=== PATIENT | female | born 1940 | race Hispanic/Latino ===

== ENCOUNTER 2017-10-31 12:06 | Inpatient (IN) | payer MEDICARE ==
[2017-10-31 12:15] VITALS: BMI 20.9
[2017-10-31] MEDS ORDERED: Sodium Chloride 0.9% 1,000 ML IV STA (12:48)
[2017-10-31 12:55] LABS: BASO # 0.02 K/mm3 (0.0-2.0); BASO % 0.3 % (0.0-3.0); EOS # 0.1 (0.0-0.7); EOS % 1.4 % (1.5-5.0); GRAN # 4.38 (1.4-6.5); GRAN % 63.2 % (50.0-68.0); HEMOGLOBIN 13.9 g/dL (12.0-16.0); LYMPH # 1.4 (1.2-3.4); LYMPH % 19.8 % (22.0-35.0); MEAN CORPUSCULAR HEMOGLOBIN 31.4 pg (25.0-35.0); MEAN CORPUSCULAR HGB CONC 34.6 g/dl (31.0-37.0); MEAN PLATELET VOLUME 10.9 fl (7.0-11.0); MONO # 1.1 (0.1-0.6); MONO % 15.3 % (1.0-6.0); RBC 4.42 10^6/uL (3.5-6.1); RED CELL DISTRIBUTION WIDTH 12.7 % (11.5-14.5); WHITE BLOOD COUNT 6.9 10^3/ul (4.5-11.0)
[2017-10-31] MEDS ORDERED: Iohexol 240 (50 ml) ONE (12:56)
[2017-10-31 13:09] LABS: ALB/GLOB RATIO 1.6 (1.1-1.8); ALBUMIN 4.1 g/dL (3.0-4.8); CALCIUM 9.6 mg/dL (8.4-10.5)
[2017-10-31] MEDS ORDERED: Potassium Chloride 20 mEq ER Tab PO STA (13:13)
[2017-10-31 13:28] LABS: TROPONIN I 0.03 ng/mL
--- NOTE | 2017-10-31 13:34 | ED PDOC ---
Arrival/HPI - General Chief Complaint: Abdominal Pain Time Seen by Provider: 10/31/17 12:19 Historian: Patient - History of Present Illness Narrative History of Present Illness (Text): 10/31/17 13:34 A 77 year old female presents to the emergency department complaining of dizziness and abdominal pain. Patient reports abdominal pain for the past week and dizziness for couple days. Reports decreased PO intake. Patient states she has a history of constipation, took an extra dose of laxative and notes several episodes of loose, watery stool. Patient denies any chest pain, shortness of breath or any other complaints at this time. Time/Duration: 1 week, < week Symptom Onset: Sudden Symptom Course: Unchanged Activities at Onset: Rest Context: Home Past Medical History - Provider Review Nursing Documentation Reviewed: Yes - Infectious Disease Hx of Infectious Diseases: None - Cardiac Hx Hypertension: Yes - Neurological Hx Parkinson's Disease: Yes - Psychiatric Hx Anxiety: Yes Hx Depression: Yes Hx Substance Use: No - Surgical History Hx Hysterectomy: Yes - Anesthesia Hx Anesthesia: Yes Hx Anesthesia Reactions: No Hx Malignant Hyperthermia: No Family/Social History - Physician Review Nursing Documentation Reviewed: Yes Family/Social History: No Known Family HX Smoking Status: Never Smoked Hx Alcohol Use: No Hx Substance Use: No Allergies/Home Meds Allergies/Adverse Reactions: Allergies azithromycin Adverse Reaction (Verified 10/31/17 16:21) ANAPHYLAXIS nitrofurantoin [From Macrobid] Adverse Reaction (Verified 10/31/17 16:21) ANAPHYLAXIS Home Medications: Home Meds Medication Instructions Recorded Confirmed ALPRAZolam [Xanax] 1 tab PO QID PRN 10/31/17 10/31/17 Albuterol Sulfate [Proair Hfa] 1 puff IH PRN PRN 10/31/17 10/31/17 Fluticasone/Salmeterol 100/50 1 puff IH DAILY 10/31/17 10/31/17 [Advair Diskus 100/50] Losartan/Hydrochlorothiazide 1 tab PO DAILY 10/31/17 10/31/17 [Hyzaar 100-25 Tablet] PARoxetine [Paxil] 1 tab PO DAILY 10/31/17 10/31/17 Primidone [Mysoline] 3 tab PO HS 10/31/17 10/31/17 Simvastatin [Zocor] 1 tab PO HS 10/31/17 10/31/17 Review of Systems - Physician Review All systems were reviewed & negative as marked: Yes - Review of Systems Respiratory: absent: SOB Cardiovascular: absent: Chest Pain Gastrointestinal: Abdominal Pain, Stool Changes (loose, watery stool), Constipation (chronic) Neurological: Dizziness Physical Exam Vital Signs Reviewed: Yes Vital Signs Temp Pulse Resp BP Pulse Ox 10/31/17 18:31 79 16 131/76 100 10/31/17 15:21 74 18 160/82 H 100 10/31/17 12:21 97.9 F 82 18 133/88 97 Temperature: Afebrile Blood Pressure: Normal Pulse: Regular Respiratory Rate: Normal Appearance: Positive for: Well-Appearing, Non-Toxic, Comfortable Pain Distress: None Mental Status: Positive for: Alert and Oriented X 3 - Systems Exam Head: Present: Atraumatic, Normocephalic Pupils: Present: PERRL Extroacular Muscles: Present: EOMI Conjunctiva: Present: Normal Mouth: Present: Moist Mucous Membranes Neck: Present: Normal Range of Motion Respiratory/Chest: Present: Clear to Auscultation, Good Air Exchange. No: Respiratory Distress, Accessory Muscle Use Cardiovascular: Present: Regular Rate and Rhythm, Normal S1, S2. No: Murmurs Abdomen: Present: Tenderness (periumbilical region), Normal Bowel Sounds. No: Distention, Peritoneal Signs Back: Present: Normal Inspection Upper Extremity: Present: Normal Inspection. No: Cyanosis, Edema Lower Extremity: Present: Normal Inspection. No: Edema Neurological: Present: GCS=15, CN II-XII Intact, Speech Normal Skin: Present: Warm, Dry, Normal Color. No: Rashes Psychiatric: Present: Alert, Oriented x 3, Normal Insight, Normal Concentration Medical Decision Making ED Course and Treatment: 10/31/17 13:31 Impression: A 77 year old female with dizziness and abdominal pain. Plan: -- EKG -- CT abd/pelvis -- labs -- Urinalysis -- IV fluids, Zofran -- Reassess and disposition Progress Notes: EKG: Ordered, reviewed, and independently interpreted the EKG. Rate : 79 BPM Rhythm : NSR Interpretation : Normal axis, normal intervals 10/31/17 14:59 CT Abdomen and Pelvis with contrast Creator : Kahlil Collins MD FINDINGS: LOWER THORAX: Unremarkable. LIVER: Unremarkable. No gross lesion or ductal dilatation. GALLBLADDER AND BILE DUCTS: Unremarkable. PANCREAS: Unremarkable. No gross lesion or ductal dilatation. SPLEEN: Unremarkable. ADRENALS: Unremarkable. No mass. KIDNEYS AND URETERS: Unremarkable. No hydronephrosis. No solid mass. VASCULATURE: Unremarkable. No aortic aneurysm. BOWEL: Multiple dilated small bowel loops are seen throughout the abdomen. This extends to the level of the terminal ileum. There is some mural thickening at the terminal ileum. Findings may be due to inflammatory bowel disease or Crohn' s disease. The finding is best seen on image 35 series 601. The colon is normal in caliber. There is some fluid in the colon and enhancement of the wall of the colon. This could represent mild colitis. APPENDIX: Normal appendix. PERITONEUM: Unremarkable. No free fluid. No free air. LYMPH NODES: Unremarkable. No enlarged lymph nodes. BLADDER: Unremarkable. REPRODUCTIVE: Unremarkable. BONES: No acute fracture. IMPRESSION: Small bowel obstruction probably at the level of the terminal ileum. Findings could be due to Crohn's disease or inflammatory bowel disease. There is also mural enhancement and fluid in the colon, possible colitis - Lab Interpretations Lab Results: 10/31/17 12:50 10/31/17 12:50 Lab Results 10/31/17 14:12: Urine Color Yellow, Urine Appearance Sl cloudy, Urine pH 6.5, Ur Specific [place] <= 1.005, Urine Protein 30 H, Urine Glucose (UA) Negative, Urine Ketones 15 H, Urine Blood Small H, Urine Nitrate Negative, Urine Bilirubin Negative, Urine Urobilinogen 0.2, Ur Leukocyte Esterase Negative, Urine RBC 0 - 2, Urine WBC 0 - 2 10/31/17 12:50: Sodium 133, Potassium 3.1 L, Chloride 99, Carbon Dioxide 23, Anion Gap 15, BUN 20, Creatinine 1.1, Est GFR ( Amer) 58, Est GFR (Non- Af Amer) 48, Random Glucose 102, Calcium 9.6, Total Bilirubin 0.5, AST 52 H, ALT 70 H, Alkaline Phosphatase 78, Lactate Dehydrogenase 648, Total Creatine Kinase 93, Troponin I 0.03, Total Protein 6.5, Albumin 4.1, Globulin 2.5, Albumin/Globulin Ratio 1.6, Amylase 61, Lipase 132 10/31/17 12:50: WBC 6.9, RBC 4.42, Hgb 13.9, Hct 40.2, MCV 91.0, MCH 31.4, MCHC 34.6, RDW 12.7, Plt Count 362, MPV 10.9, Gran % 63.2, Lymph % (Auto) 19.8 L, [place] % (Auto) 15.3 H, Eos % (Auto) 1.4 L, Baso % (Auto) 0.3, Gran # 4.38, Lymph # 1.4, Page # 1.1 H, Eos # 0.1, Baso # 0.02 I have reviewed the lab results: Yes - RAD Interpretation Radiology Orders: 10/31/17 12:48 ABD PELVIS PO & IV CONTRAST [CT] Stat - EKG Interpretation Interpreted by ED Physician: Yes Type: 12 lead EKG - Medication Orders Current Medication Orders: Discontinued Medications Sodium Chloride (Sodium Chloride 0.9%) 1,000 mls @ 250 mls/hr IV .Q4H STA Stop: 10/31/17 16:47 Last Admin: 10/31/17 12:53 Dose: 250 mls/hr eMAR Start Stop Document 10/31/17 12:53 SE (Rec: 10/31/17 12:53 SE [id number]) Intravenous Solution Start Date 10/31/17 Start Time 12:53 Ciprofloxacin (Cipro 400mg/200ml Dsw) 400 mg in 200 mls @ 133.3 mls/hr IVPB STAT STA PRN Reason: Protocol Stop: 10/31/17 17:09 Last Admin: 10/31/17 17:19 Dose: 133.3 mls/hr eMAR Start Stop Document 10/31/17 17:19 SE (Rec: 10/31/17 17:19 SE [id number]) Intravenous Solution Start Date 10/31/17 Start Time 17:19 Metronidazole (Flagyl) 500 mg in 100 mls @ 100 mls/hr IVPB STAT STA PRN Reason: Protocol Stop: 10/31/17 16:38 Last Admin: 10/31/17 15:53 Dose: 100 mls/hr eMAR Start Stop Document 10/31/17 15:53 SE (Rec: 10/31/17 15:53 SE [id number]) Intravenous Solution Start Date 10/31/17 Start Time 15:53 Ondansetron HCl (Zofran Inj) 4 mg IVP STAT STA Stop: 10/31/17 12:49 Last Admin: 10/31/17 12:55 Dose: Potassium Chloride (K-Dur 20 Meq Er Tab) 40 meq PO STAT STA Stop: 10/31/17 13:14 Last Admin: 10/31/17 13:41 Dose: 40 meq - Scribe Statement The provider has reviewed the documentation as recorded by the Scarlet Dobson Provider Scribe Attestation: All medical record entries made by the Adamsibrd were at my direction and personally dictated by me. I have reviewed the chart and agree that the record accurately reflects my personal performance of the history, physical exam, medical decision making, and the department course for this patient. I have also personally directed, reviewed, and agree with the discharge instructions and disposition. Disposition/Present on Arrival - Present on Arrival Any Indicators Present on Arrival: No History of DVT/PE: No History of Uncontrolled Diabetes: No Urinary Catheter: No History of Decub. Ulcer: No History Surgical Site Infection Following: None - Disposition Have Diagnosis and Disposition been Completed?: Yes Diagnosis: Small bowel obstruction, Abdominal pain Disposition: HOSPITALIZED Disposition Time: 15:00 Condition: FAIR
[2017-10-31] MEDS ORDERED: Iohexol 350 MG/100 ML VIAL ONE (14:16)
[2017-10-31 14:23] LABS: PH,URINE 6.5 (4.7-8.0); URINE BILIRUBIN NEGATIVE (NEGATIVE); URINE BLOOD SMALL (NEGATIVE); URINE GLUCOSE (UA) NEGATIVE (NEGATIVE); URINE LEUKOCYTE ESTERASE NEGATIVE Leu/uL (NEGATIVE); URINE NITRATE NEGATIVE (NEGATIVE); URINE PROTEIN 30 mg/dL (<30 mg/dL); URINE UROBILINOGEN 0.2 E.U./dL (<1 E.U./dL)
[2017-10-31 14:25] LABS: URINE APPEARANCE SL CLOUDY (CLEAR); URINE COLOR YELLOW (YELLOW)
[2017-10-31 14:35] LABS: URINE RBC 0 - 2 /hpf (0-2); URINE WBC 0 - 2 /hpf (0-6)
--- NOTE | 2017-10-31 14:58 | CT ---
PROCEDURE: CT Abdomen and Pelvis with contrast HISTORY: periumbilical abdominal pain COMPARISON: None. TECHNIQUE: Contrast dose: 100 cc of Omni 350 Radiation dose: Total exam DLP = 249 mGy-cm. This CT exam was performed using one or more of the following dose reduction techniques: Automated exposure control, adjustment of the mA and/or kV according to patient size, and/or use of iterative reconstruction technique. FINDINGS: LOWER THORAX: Unremarkable. LIVER: Unremarkable. No gross lesion or ductal dilatation. GALLBLADDER AND BILE DUCTS: Unremarkable. PANCREAS: Unremarkable. No gross lesion or ductal dilatation. SPLEEN: Unremarkable. ADRENALS: Unremarkable. No mass. KIDNEYS AND URETERS: Unremarkable. No hydronephrosis. No solid mass. VASCULATURE: Unremarkable. No aortic aneurysm. BOWEL: Multiple dilated small bowel loops are seen throughout the abdomen. This extends to the level of the terminal ileum. There is some mural thickening at the terminal ileum. Findings may be due to inflammatory bowel disease or Crohn's disease. The finding is best seen on image 35 series 601. The colon is normal in caliber. There is some fluid in the colon and enhancement of the wall of the colon. This could represent mild colitis. APPENDIX: Normal appendix. PERITONEUM: Unremarkable. No free fluid. No free air. LYMPH NODES: Unremarkable. No enlarged lymph nodes. BLADDER: Unremarkable. REPRODUCTIVE: Unremarkable. BONES: No acute fracture. OTHER FINDINGS: None. IMPRESSION: Small bowel obstruction probably at the level of the terminal ileum. Findings could be due to Crohn's disease or inflammatory bowel disease. There is also mural enhancement and fluid in the colon, possible colitis
[2017-10-31] MEDS ORDERED: metroNIDAZOLE IV 500 mg/100 ml 500 MG/100 ML BAG IVPB STA (15:39)
[2017-10-31] MEDS ORDERED: Ciprofloxacin 400mg/200ml D5W 400 MG/200 ML BAG IVPB STA (15:39)
--- NOTE | 2017-10-31 16:28 | CP.PCM.CON ---
History of Present Illness - History of Present Illness History of Present Illness: GENERAL SURGERY CONSULT NOTE FOR DR. MALONE Patient is a 77 YO F with PMH of essential tremor, HTN, chronic constipation, and hysterectomy presented to the [facility] ED with intermittent, diffuse abdominal pain. Patient reports having a similar attack in August of 2017 that resolved and another prior to this episode. The most recent attack occurred this past Friday10/25/17, when patient felt diffuse crampy abdominal pain. On Friday, patient had 2 episodes of emesis that were all liquid and non-bloody. Since Friday patient has had decreased PO intake. On Friday she took 4 laxative pills which caused profuse diarrhea. She became dehydrated and a had a fall at home but denies any head trauma. Patient's abdominal pain continued to worsen which brought her to the ED today. Pt had a bowel movement this morning and is passing gas. Patient denies nausea, vomiting, fevers, and chills. Computed tomography scan 10/31/17 revealed possible SBO at the level of terminal ileum, mural enhancement, and fluid in the colon suggestive of possible colitis. Patient has never had a colonoscopy or upper endoscopy. PMH: Hypertension, chronic constipation, essential tremor, anxiety disorder agoraphobia Past Surgical History: Hysterectomy - 21 years ago Allergies: azithromycin, nitrofurantoin Social: Patient denies alcohol, smoking, or illicit drug use Review of Systems - Constitutional Constitutional: As Per HPI Past Patient History - Infectious Disease Hx of Infectious Diseases: None - Past Medical History & Family History Past Medical History?: Yes - Past Social History Smoking Status: Never Smoked - CARDIAC Hx Hypertension: Yes - NEUROLOGICAL Other/Comment: essential tremor - GASTROINTESTINAL Hx Constipation: Yes (chronic constipation since age 19 ) - PSYCHIATRIC Hx Anxiety: Yes Hx Depression: Yes Hx Substance Use: No - SURGICAL HISTORY Hx Hysterectomy: Yes - ANESTHESIA Hx Anesthesia: Yes Hx Anesthesia Reactions: No Hx Malignant Hyperthermia: No Meds Allergies/Adverse Reactions: Allergies Allergy/AdvReac Type Severity Reaction Status Date / Time azithromycin AdvReac ANAPHYLAXIS Verified 10/31/17 16:21 nitrofurantoin AdvReac ANAPHYLAXIS Verified 10/31/17 16:21 [From Macrobid] - Medications Medications: Current Medications Sodium Chloride (Sodium Chloride 0.9%) 1,000 mls @ 250 mls/hr IV .Q4H STA Stop: 10/31/17 16:47 Last Admin: 10/31/17 12:53 Dose: 250 mls/hr Ciprofloxacin (Cipro 400mg/200ml Dsw) 400 mg in 200 mls @ 133.3 mls/hr IVPB STAT STA PRN Reason: Protocol Stop: 10/31/17 17:09 Metronidazole (Flagyl) 500 mg in 100 mls @ 100 mls/hr IVPB STAT STA PRN Reason: Protocol Stop: 10/31/17 16:38 Last Admin: 10/31/17 15:53 Dose: 100 mls/hr Physical Exam - Constitutional Appears: No Acute Distress - Head Exam Head Exam: ATRAUMATIC, NORMOCEPHALIC - Eye Exam Eye Exam: EOMI, Normal appearance - ENT Exam ENT Exam: Mucous Membranes Dry - Neck Exam Neck exam: Positive for: Normal Inspection - Respiratory Exam Respiratory Exam: NORMAL BREATHING PATTERN. absent: Accessory Muscle Use, Respiratory Distress - GI/Abdominal Exam GI & Abdominal Exam: Distended (slightly ), Soft. absent: Guarding, Organomegaly, Rebound, Tenderness - Neurological Exam Neurological exam: Alert, Oriented x3 - Psychiatric Exam Psychiatric exam: Normal Affect, Normal Mood - Skin Skin Exam: Normal Color, Warm Results - Vital Signs Recent Vital Signs: Last Vital Signs Temp 97.9 F 10/31/17 12:21 Pulse 74 10/31/17 15:21 Resp 18 10/31/17 15:21 BP 160/82 H 10/31/17 15:21 Pulse Ox 100 10/31/17 15:21 - Labs Result Diagrams: 10/31/17 12:50 10/31/17 12:50 Labs: Laboratory Results - last 24 hr 10/31/17 10/31/17 10/31/17 12:50 12:50 14:12 WBC 6.9 RBC 4.42 Hgb 13.9 Hct 40.2 MCV 91.0 MCH 31.4 MCHC 34.6 RDW 12.7 Plt Count 362 MPV 10.9 Gran % 63.2 Lymph % (Auto) 19.8 L [place] % (Auto) 15.3 H Eos % (Auto) 1.4 L Baso % (Auto) 0.3 Gran # 4.38 Lymph # 1.4 [place] # 1.1 H Eos # 0.1 Baso # 0.02 Sodium 133 Potassium 3.1 L Chloride 99 Carbon Dioxide 23 Anion Gap 15 BUN 20 Creatinine 1.1 Est GFR ( Amer) 58 Est GFR (Non-Af Amer) 48 Random Glucose 102 Calcium 9.6 Total Bilirubin 0.5 AST 52 H ALT 70 H Alkaline Phosphatase 78 Lactate Dehydrogenase 648 Total Creatine Kinase 93 Troponin I 0.03 Total Protein 6.5 Albumin 4.1 Globulin 2.5 Albumin/Globulin Ratio 1.6 Amylase 61 Lipase 132 Urine Color Yellow Urine Appearance Sl cloudy Urine pH 6.5 Ur Specific [place] <= 1.005 Urine Protein 30 H Urine Glucose (UA) Negative Urine Ketones 15 H Urine Blood Small H Urine Nitrate Negative Urine Bilirubin Negative Urine Urobilinogen 0.2 Ur Leukocyte Esterase Negative Urine RBC 0 - 2 Urine WBC 0 - 2 Assessment & Plan - Assessment and Plan (Free Text) Assessment: 77 year old female with a past medical of hypertension, essential tremor, chronic constipation and diffuse crampy intermittent abdominal pain. CT of the abdomen and pelvis with oral and IV contrast revealed small bowel obstruction probably at the level of the terminal ileum. Findings could be due to Crohn's disease or inflammatory bowel disease. There is also mural enhancement and fluid in the colon, possible colitis. Hence, surgery was consulted. Plan: -Patient appears comfortable, but if patient becomes nauseous or starts to vomit consider NGT decompression -Serial abdominal exams -NPO -IV fluids -F/U GI recs - Case discussed with Dr. Malone - Date & Time Date: 10/31/17 Time: 18:00
[2017-10-31] MEDS ORDERED: Sodium Chloride 0.9% 1,000 ML IV ONE (19:15)
[2017-10-31] MEDS ORDERED: Morphine 2 mg/ml ISec IM PRN (19:23)
[2017-10-31] MEDS ORDERED: Albuterol HFA 90 mcg/actuation (8 g) IH PRN (19:25)
[2017-10-31] MEDS ORDERED: Influenza Vaccine 60 mcg/0.5 mL SYR (4YR UP) IM ONE (20:12)
[2017-10-31] MEDS ORDERED: Pneumococcal 23-Valent Vaccine IM ONE (20:12)
[2017-10-31] MEDS: Albuterol-Ipratrop 3 mg / 0.5 (3 ml) UD IH SCH ×2 (20:49→20:52)
[2017-10-31] MEDS: cefTRIAXone 1 gm 1 GM/100 ML BAG IVPB SCH (21:52)
[2017-10-31] MEDS: metroNIDAZOLE IV 500 mg/100 ml 500 MG/100 ML BAG IVPB SCH (23:10)
[2017-11-01] MEDS: Albuterol-Ipratrop 3 mg / 0.5 (3 ml) UD IH SCH ×4 (03:00→20:40)
[2017-11-01] MEDS: metroNIDAZOLE IV 500 mg/100 ml 500 MG/100 ML BAG IVPB SCH ×3 (06:24→22:15)
--- NOTE | 2017-11-01 07:52 | CP.PCM.CON ---
<Opal Moyer - Last Filed: 11/01/17 09:31> History of Present Illness - History of Present Illness History of Present Illness: Gastroenterology Fellow/PGY5 Consult Note 77 year old female with history of Hypertension, Hyperlipidemia, Anxiety, constipation, and essential tremor presenting with abdominal pain. Patient notes one episode of bilious vomiting last Friday followed by "excruciating" diffuse abdominal pain without continuous improvement intern ing to ER presentation yesterday. She took three doses of X-Lax on Friday as she had not had a BM since Friday with resultant diarrhea on and Friday. Admits to no bowel movement since this time. Denies fever, chills, sweats, recurrent vomiting, hematemesis, melena, hematochezia, or unintentional weight loss. No prior EGD or colonoscopy. Family- denies colon cancer Social- quit tobacco at 34 years of age, social alcohol use in 20s, denies illicit drug use Surgery- hysterectomy 21 years ago Review of Systems - Review of Systems Review of Systems: 12-point review of systems negative except for as above Past Patient History - Infectious Disease Hx of Infectious Diseases: None - Past Medical History & Family History Past Medical History?: Yes - Past Social History Smoking Status: Former Smoker - CARDIAC Hx Cardiac Disorders: Yes Hx Hypercholesterolemia: Yes Hx Hypertension: Yes - PULMONARY Hx Respiratory Disorders: Yes (h/o smoking cigarettes .quit) - NEUROLOGICAL Hx Neurological Disorder: Yes Hx Parkinson's Disease: Yes - HEENT Hx HEENT Problems: No - RENAL Hx Chronic Kidney Disease: No - ENDOCRINE/METABOLIC Hx Endocrine Disorders: No - HEMATOLOGICAL/ONCOLOGICAL Hx Blood Disorders: No - INTEGUMENTARY Hx Dermatological Problems: No - MUSCULOSKELETAL/RHEUMATOLOGICAL Hx Musculoskeletal Disorders: No Hx Falls: Yes - GASTROINTESTINAL Hx Gastrointestinal Disorders: Yes (sbo 10-31-17) Hx Crohn's Disease: No - GENITOURINARY/GYNECOLOGICAL Hx Genitourinary Disorders: No - PSYCHIATRIC Hx Psychophysiologic Disorder: Yes Hx Anxiety: Yes Hx Depression: Yes Hx Substance Use: No - SURGICAL HISTORY Hx Surgeries: Yes Hx Hysterectomy: Yes - ANESTHESIA Hx Anesthesia: Yes Hx Anesthesia Reactions: No Hx Malignant Hyperthermia: No Meds Allergies/Adverse Reactions: Allergies Allergy/AdvReac Type Severity Reaction Status Date / Time azithromycin AdvReac ANAPHYLAXIS Verified 10/31/17 16:21 nitrofurantoin AdvReac ANAPHYLAXIS Verified 10/31/17 16:21 [From Macrobid] - Medications Medications: Current Medications Acetaminophen (Tylenol 325mg Tab) 650 mg PO Q4H PRN PRN Reason: Fever >100.4 F Last Admin: 10/31/17 20:04 Dose: 650 mg Albuterol/Ipratropium (Duoneb 3 Mg/0.5 Mg (3 Ml) Ud) 3 ml IH [id number] [facility] Last Admin: 11/01/17 03:00 Dose: Not Given Alprazolam (Xanax) 1 mg PO QID PRN; Protocol PRN Reason: Anxiety Last Admin: 10/31/17 21:54 Dose: 1 mg Atorvastatin Calcium (Lipitor) 10 mg PO HS [facility] Hydrochlorothiazide (Hydrodiuril) 25 mg PO DAILY [facility] Metronidazole (Flagyl) 500 mg in 100 mls @ 100 mls/hr IVPB Q8 [facility] PRN Reason: Protocol Last Admin: 11/01/17 06:24 Dose: 100 mls/hr Ceftriaxone Sodium (Rocephin 1 Gram Ivpb) 1 gm in 100 mls @ 100 mls/hr IVPB DAILY [facility] PRN Reason: Protocol Last Admin: 10/31/17 21:52 Dose: 100 mls/hr Losartan Potassium (Cozaar) 100 mg PO DAILY [facility] Morphine Sulfate (Morphine) 2 mg IM Q4H PRN PRN Reason: Pain, moderate (4-7) Ondansetron HCl (Zofran Inj) 4 mg IVP Q4H PRN PRN Reason: Nausea/Vomiting Pantoprazole Sodium (Protonix Inj) 40 mg IVP DAILY [facility] Last Admin: 10/31/17 21:54 Dose: 40 mg Paroxetine HCl (Paxil) 20 mg PO DAILY [facility] Primidone (Mysoline) 50 mg PO HS [facility] Last Admin: 10/31/17 21:54 Dose: 50 mg Physical Exam - Constitutional Appears: Non-toxic, No Acute Distress - Head Exam Head Exam: ATRAUMATIC, NORMOCEPHALIC - Eye Exam Eye Exam: EOMI, PERRL. absent: Scleral icterus Pupil Exam: PERRL. absent: Miosis, Mydriatic - ENT Exam ENT Exam: Mucous Membranes Moist, Normal Oropharynx - Neck Exam Neck exam: Positive for: Full Rom, Normal Inspection - Respiratory Exam Respiratory Exam: Clear to Auscultation Bilateral. absent: Rales, Rhonchi, Wheezes, Stridor - Cardiovascular Exam Cardiovascular Exam: RRR, +S1, +S2. absent: Gallop, Rubs - GI/Abdominal Exam GI & Abdominal Exam: Hypoactive Bowel Sounds, Soft. absent: Distended, Firm, Guarding, Organomegaly, Rebound, Rigid, Tenderness - Extremities Exam Extremities exam: Positive for: full ROM. Negative for: pedal edema - Neurological Exam Neurological exam: Alert - Psychiatric Exam Psychiatric exam: Normal Affect, Normal Mood - Skin Skin Exam: Dry, Intact, Normal Color, Warm Results - Vital Signs Recent Vital Signs: Last Vital Signs Temp 100.1 F H 10/31/17 20:04 Pulse 79 10/31/17 19:48 Resp 18 10/31/17 19:48 BP 131/76 10/31/17 19:48 Pulse Ox 100 10/31/17 18:31 - Labs Result Diagrams: 11/01/17 07:30 11/01/17 07:30 Assessment & Plan - Assessment and Plan (Free Text) Assessment: 77 year old female with history of Hypertension, Hyperlipidemia, Anxiety, constipation, and essential tremor presenting with abdominal pain. Active treatemtn o small bowel obstruction with marked terminal ileum thickeninig and mild colonic thickening as noted on CT A/P PO/IV contrast. No prior EGD or colonoscopy. Plan: >DDx: infectious, IBD, colonic ischemia >stool studies to rule out infectious diarrhea >on ceftriaxone/flagyl >ordered abdominal flat plate to re-evaluate SBP >tolerating ice chips, possible clear liquid trial this evening if xray is improved and clinically stable >ordered ESR, CRP prior to consideration steroid induction therapy for possible IBD >will follow clinical course <Bruno Hernandez - Last Filed: 11/01/17 14:27> Meds - Medications Medications: Current Medications Acetaminophen (Tylenol 325mg Tab) 650 mg PO Q4H PRN PRN Reason: Fever >100.4 F Last Admin: 10/31/17 20:04 Dose: 650 mg Albuterol/Ipratropium (Duoneb 3 Mg/0.5 Mg (3 Ml) Ud) 3 ml IH [id number] [facility] Last Admin: 11/01/17 08:32 Dose: Not Given Alprazolam (Xanax) 1 mg PO QID PRN; Protocol PRN Reason: Anxiety Last Admin: 10/31/17 21:54 Dose: 1 mg Atorvastatin Calcium (Lipitor) 10 mg PO HS [facility] Hydrochlorothiazide (Hydrodiuril) 25 mg PO DAILY [facility] Last Admin: 11/01/17 10:50 Dose: Not Given Metronidazole (Flagyl) 500 mg in 100 mls @ 100 mls/hr IVPB Q8 [facility] PRN Reason: Protocol Last Admin: 11/01/17 06:24 Dose: 100 mls/hr Ceftriaxone Sodium (Rocephin 1 Gram Ivpb) 1 gm in 100 mls @ 100 mls/hr IVPB DAILY [facility] PRN Reason: Protocol Last Admin: 11/01/17 10:39 Dose: 100 mls/hr Losartan Potassium (Cozaar) 100 mg PO DAILY [facility] Last Admin: 11/01/17 10:34 Dose: 100 mg Morphine Sulfate (Morphine) 2 mg IM Q4H PRN PRN Reason: Pain, moderate (4-7) Ondansetron HCl (Zofran Inj) 4 mg IVP Q4H PRN PRN Reason: Nausea/Vomiting Pantoprazole Sodium (Protonix Inj) 40 mg IVP DAILY [facility] Last Admin: 11/01/17 10:38 Dose: 40 mg Paroxetine HCl (Paxil) 20 mg PO DAILY [facility] Last Admin: 11/01/17 10:35 Dose: 20 mg Primidone (Mysoline) 50 mg PO HS [facility] Last Admin: 10/31/17 21:54 Dose: 50 mg Results - Vital Signs Recent Vital Signs: Last Vital Signs Temp 98.5 F 11/01/17 06:00 Pulse 77 11/01/17 06:00 Resp 20 11/01/17 06:00 BP 154/77 H 11/01/17 06:00 Pulse Ox 97 11/01/17 06:00 - Labs Result Diagrams: 11/01/17 07:30 11/01/17 07:30 Labs: Laboratory Results - last 24 hr 11/01/17 11/01/17 11/01/17 07:30 07:30 09:06 WBC 6.2 RBC 3.95 Hgb 12.3 Hct 36.3 MCV 91.9 MCH 31.1 MCHC 33.9 RDW 12.8 Plt Count 319 MPV 10.9 Gran % 60.2 Lymph % (Auto) 24.2 [place] % (Auto) 12.4 H Eos % (Auto) 2.7 Baso % (Auto) 0.5 Gran # 3.75 Lymph # 1.5 [place] # 0.8 H Eos # 0.2 Baso # 0.03 ESR 4 Sodium 139 Potassium 2.7 L* Chloride 104 Carbon Dioxide 24 Anion Gap 13 BUN 11 Creatinine 1.1 Est GFR ( Amer) 58 Est GFR (Non-Af Amer) 48 Random Glucose 75 Calcium 8.5 Phosphorus 2.2 L Magnesium 2.1 Total Bilirubin 0.4 Direct Bilirubin 0.4 AST 36 D ALT 59 H Alkaline Phosphatase 67 Total Protein 5.9 Albumin 3.4 Globulin 2.5 Albumin/Globulin Ratio 1.4 Attending/Attestation - Attestation I have personally seen and examined this patient.: Yes I have fully participated in the care of the patient.: Yes I have reviewed all pertinent clinical information: Yes Notes (Text): 11/01/17 14:24 77 year old female with h/o HTN, HLD, chronic constiopation admitted with SBO. 1. Small bowel obstruction 2. Terminal ileitis Plan: -infectious vs inflammatory vs ischemia -CT reviewed, follow up x ray today shows contrast in the colon, ok to start trial of clear liquids tonight, her abdominal pain and distention is also improved -continue iv hydration, electrolyte replacement, and anti-emetics -continue iv antibiotics -check any bm for infectious etiologies -check esr/crp to eval for possible ibd -appreciate surgical eval -repeat abdominal x ray tomorrow -if no improvement, may consider steroids for possible IBD -will follow
--- NOTE | 2017-11-01 08:33 | CP.PCM.PN ---
Subjective - Date & Time of Evaluation Date of Evaluation: 11/01/17 Time of Evaluation: 07:00 - Subjective Subjective: General Surgery- Dr. Ortega Patient seen and examined at bedside this AM. Reports limited sleep. Abdominal pain significantly improved. Belly more soft. Passing flatus, No BM at this time. Denies Nausea, vomiting, fevers, chills, chest pain, shortness of breath. Objective - Vital Signs/Intake and Output Vital Signs (last 24 hours): Temp Pulse Resp BP Pulse Ox 100.1 F H 79 18 131/76 100 10/31/17 20:04 10/31/17 19:48 10/31/17 19:48 10/31/17 19:48 10/31/17 18:31 Intake and Output: 11/01/17 11/01/17 06:59 18:59 Intake Total 1100 0 Balance 1100 0 - Medications Medications: Current Medications Acetaminophen (Tylenol 325mg Tab) 650 mg PO Q4H PRN PRN Reason: Fever >100.4 F Last Admin: 10/31/17 20:04 Dose: 650 mg Albuterol/Ipratropium (Duoneb 3 Mg/0.5 Mg (3 Ml) Ud) 3 ml IH [id number] Last Admin: 11/01/17 03:00 Dose: Not Given Alprazolam (Xanax) 1 mg PO QID PRN; Protocol PRN Reason: Anxiety Last Admin: 10/31/17 21:54 Dose: 1 mg Atorvastatin Calcium (Lipitor) 10 mg PO HS [facility] Hydrochlorothiazide (Hydrodiuril) 25 mg PO DAILY [facility] Metronidazole (Flagyl) 500 mg in 100 mls @ 100 mls/hr IVPB Q8 [facility] PRN Reason: Protocol Last Admin: 11/01/17 06:24 Dose: 100 mls/hr Ceftriaxone Sodium (Rocephin 1 Gram Ivpb) 1 gm in 100 mls @ 100 mls/hr IVPB DAILY [facility] PRN Reason: Protocol Last Admin: 10/31/17 21:52 Dose: 100 mls/hr Losartan Potassium (Cozaar) 100 mg PO DAILY [facility] Morphine Sulfate (Morphine) 2 mg IM Q4H PRN PRN Reason: Pain, moderate (4-7) Ondansetron HCl (Zofran Inj) 4 mg IVP Q4H PRN PRN Reason: Nausea/Vomiting Pantoprazole Sodium (Protonix Inj) 40 mg IVP DAILY [facility] Last Admin: 10/31/17 21:54 Dose: 40 mg Paroxetine HCl (Paxil) 20 mg PO DAILY [facility] Primidone (Mysoline) 50 mg PO HS [facility] Last Admin: 10/31/17 21:54 Dose: 50 mg - Constitutional Appears: Non-toxic, No Acute Distress - Head Exam Head Exam: ATRAUMATIC - Eye Exam Eye Exam: EOMI, Scleral icterus - ENT Exam ENT Exam: Mucous Membranes Moist - Respiratory Exam Respiratory Exam: NORMAL BREATHING PATTERN. absent: Accessory Muscle Use, Respiratory Distress - Cardiovascular Exam Cardiovascular Exam: +S1, +S2. absent: Bradycardia, Tachycardia - GI/Abdominal Exam GI & Abdominal Exam: Soft, Tenderness Additional comments: abd soft; localized tenderness to palpation Right lateral - Extremities Exam Extremities Exam: Normal Inspection. absent: Calf Tenderness - Back Exam Back Exam: absent: CVA tenderness (L), CVA tenderness (R) - Neurological Exam Neurological Exam: Alert, Awake, Oriented x3 - Psychiatric Exam Psychiatric exam: Normal Affect - Skin Skin Exam: Intact, Warm Assessment and Plan - Assessment and Plan (Free Text) Assessment: 77F pmhx significant chronic constipation; small bowel obstruction vs colitis. CT: sbo most likely at terminal ileum, mural thickening in colon Plan: - continue NPO w/ Ice chips for now - IVF and ABx - if pt starts to vomit, will place NGT - f/u GI recs - serial abd exams - further recs per Dr. Ortega surgical attending Gino Quinteros PGY1
[2017-11-01 08:45] LABS: ALB/GLOB RATIO 1.4 (1.1-1.8); ALBUMIN 3.4 g/dL (3.0-4.8); BILIRUBIN,DIRECT 0.4 mg/dL (0.0-0.4); CALCIUM 8.5 mg/dL (8.4-10.5); MAGNESIUM 2.1 mg/dL (1.7-2.2)
--- NOTE | 2017-11-01 09:11 | RAD ---
HISTORY: r/o PNA COMPARISON: No prior. FINDINGS: LUNGS: No active pulmonary disease. PLEURA: No significant pleural effusion identified, no pneumothorax apparent. CARDIOVASCULAR: Normal. OSSEOUS STRUCTURES: No significant abnormalities. VISUALIZED UPPER ABDOMEN: Normal. OTHER FINDINGS: None. IMPRESSION: No active disease.
[2017-11-01 09:15] LABS: BASO # 0.03 K/mm3 (0.0-2.0); BASO % 0.5 % (0.0-3.0); EOS # 0.2 (0.0-0.7); EOS % 2.7 % (1.5-5.0); GRAN # 3.75 (1.4-6.5); GRAN % 60.2 % (50.0-68.0); HEMOGLOBIN 12.3 g/dL (12.0-16.0); LYMPH # 1.5 (1.2-3.4); LYMPH % 24.2 % (22.0-35.0); MEAN CELL VOLUME 91.9 fl (80.0-105.0); MEAN CORPUSCULAR HEMOGLOBIN 31.1 pg (25.0-35.0); MEAN CORPUSCULAR HGB CONC 33.9 g/dl (31.0-37.0); MEAN PLATELET VOLUME 10.9 fl (7.0-11.0); MONO # 0.8 (0.1-0.6); MONO % 12.4 % (1.0-6.0); RBC 3.95 10^6/uL (3.5-6.1); RED CELL DISTRIBUTION WIDTH 12.8 % (11.5-14.5); WHITE BLOOD COUNT 6.2 10^3/ul (4.5-11.0)
[2017-11-01] MEDS ORDERED: Fluticasone-Salmeterol 100-50mcg Diskus IH SCH (10:00)
[2017-11-01] MEDS: cefTRIAXone 1 gm 1 GM/100 ML BAG IVPB SCH (10:39)
--- NOTE | 2017-11-01 10:40 | CARD ---
APPROVED REPORT EKG Measurement Heart [id number] <Conclusion> Normal sinus rhythm STTW changes 2,3,F
--- NOTE | 2017-11-01 13:40 | RAD ---
HISTORY: evaluate bowel obstruction COMPARISON: CT scan 10/31/2017 FINDINGS: BOWEL: Frontal views of the abdomen were performed. These appear to be supine. . Oral contrast from the patient's recent CT scan now all is appreciated in the colon. Persistent dilated bowel loops are noted but probably mildly decreased although comparison is difficult with the other exam being a CT scan. No obvious free intraperitoneal air is identified. BONES: Stable OTHER FINDINGS: None. IMPRESSION: Contrast is appreciated within the colon. Mild decrease in bowel distention, however persistent bowel obstruction remains.
--- NOTE | 2017-11-02 01:56 | HP ---
HISTORY OF PRESENT ILLNESS: Ms. Herr is a 77-year-old female admitted to the hospital with abdominal distention, nausea, vomiting, and abdominal pain for past few days. She had similar episodes twice since August last year. She never had colonoscopy, endoscopy. No fever. Denies any chest pain. Abdominal distention and pain has decreased since yesterday, since admission. She is n.p.o. since last night. No diarrhea. CAT scan of the abdomen showed small bowel obstruction up to the terminal ileum. She is hypokalemic on presentation to the ER. Potassium is low again today at 2.1. No bleeding from any site. PAST MEDICAL HISTORY: Hypertension, Parkinson's disease, anxiety, and depression. PAST SURGICAL HISTORY: Hysterectomy. FAMILY HISTORY: Noncontributory. No positive family history of colon cancer. No history of blood disorders. PERSONAL HISTORY: Never smoked. No history of alcohol abuse. SOCIAL HISTORY: Lives at home. ALLERGIES: AZITHROMYCIN AND NITROFURANTOIN CAUSES ANAPHYLAXIS. HOME MEDICATIONS: Xanax one tablet four times a day, ProAir, losartan, Paxil one tablet daily, Mysoline tablets at bedtime, and Zocor one tablet at bedtime. REVIEW OF SYSTEMS: As per HPI. Rest of 12-point review of systems reviewed is negative. PHYSICAL EXAMINATION: GENERAL: Comfortable in bed and in no acute distress. VITAL SIGNS: Temperature is 97.8, heart rate is 82 per minute, respiratory rate is 18 per minute, blood pressure is 131/76, and pulse oximetry is 100% on room air. HEENT: Pallor positive. NECK: No lymphadenopathy. CHEST: Air entry present and equal bilaterally. No added sounds. HEART: S1 and S2 normal. No murmur. No gallop. ABDOMEN: Soft, nontender, and nondistended. No rebound tenderness. EXTREMITIES: No edema. CO CHAIRMAN: Alert and oriented x3. No focal sensory or motor deficits. EKG is normal sinus rhythm at 79 beats per minute. No ST-T changes. CT of abdomen as per HPI. LABORATORY DATA: White count 6.9, hemoglobin 13.9, hematocrit 40.2, and platelets 362. Sodium 133, potassium 3.2, BUN 20, creatinine 1.1, and glucose 102. ASSESSMENT: 1. Small bowel obstruction. 2. Hypertension. 3. Anxiety and depression. 4. Hypokalemia. 5. Lymphocytosis, monocytosis. PLAN: She will be admitted to the hospital n.p.o. except medications. IV fluids 800 mL an hour, antibiotics ceftriaxone 1 g daily, Flagyl 500 mg q.[address] hours. ID [address]. Wilson requested. GI consultation Dr. Hernandez requested. Surgery consultation Dr. Ortega. Xanax 1 mg p.o. four times a day p.r.n. for anxiety. We will replete the potassium four riders today 10 mEq, potassium is 2.1. Morphine 2 mg IV q.4 hours p.r.n. for pain, Protonix 40 mg IV daily, and Mysoline 50 mg p.o. at bedtime. X-ray of abdomen ordered today. Slight decrease in distention. We will monitor clinically. No NG tube for now. Discussed with Dr. Ortega. Discussed with the family member at bedside. Discussed with the patient. Kayla Cullen MD
[2017-11-02] MEDS: Albuterol-Ipratrop 3 mg / 0.5 (3 ml) UD IH SCH ×4 (02:24→21:09)
--- NOTE | 2017-11-02 05:26 | CON ---
DATE: 11/01/2017 LOCATION: The patient is in room 369, bed 1, was seen earlier this morning. CHIEF COMPLAINT: Abdominal pain on and off times several days. HISTORY OF PRESENT ILLNESS: This is a 77-year-old female with history of hypertension, Parkinson's disease, essential tremor, anxiety, depression who states that she has had abdominal pain for last several days, associated with loose stools. She also states that she had this several months ago. It has somewhat improved. It has been on and off for several months. The abdominal pain is generalized, cramping, diffuse, associated with generalized aches and pains, muscle pain and joint pain. No chest pain, shortness of breath, or cough. She has had low-grade fevers. No chills. No headaches or blurry vision. No blood bright red blood per rectum. She has not had any nausea at this time. PAST MEDICAL HISTORY: Significant for hypertension, Parkinson's, anxiety, essential tremor, depression. PAST SURGERY HISTORY: Includes hysterectomy 21 years ago. ALLERGIES: THE PATIENT IS ALLERGIC TO AZITHROMYCIN AND NITROFURANTOIN. MEDICATIONS AT HOME: Includes Zocor, Mysoline, Paxil, losartan, hydrochlorothiazide, inhaler and Xanax. SOCIAL HISTORY: The patient has no recent travels, not have been exposed to tuberculosis as far as she knows. PHYSICAL EXAMINATION: VITAL SIGNS: Temperature is 100.1, blood pressure is 140/90, respiratory rate of 20, heart rate of 92. HEENT: Examination of HEENT is unremarkable. NECK: Supple. LUNGS: Have decreased breath sounds. HEART: Normal S1 and S2. ABDOMEN: Soft, nontender. No rebound. No guarding. No masses. Essentially a benign abdomen. LABORATORY DATA: Examination reveals a white count of 6.9, hemoglobin of 13, platelets of 369. The patient with 63 granulocytosis. The patient does have sed rate of 4, BUN of 20, creatinine of 1.1. The patient's potassium is at 2.7. AST is 52, ALT is 70. Lipase and amylase are within normal limits. Urinalysis revealed protein and cloudy urine. No wbc's. Microbiology reveals the urine culture is negative, and the blood cultures are pending. Stool cultures are pending. Stool for C. diff is pending. The patient had a CAT scan which was noted. ASSESSMENT AND PLAN: This is a 77-year-old female with hypertension, Parkinson's disease, anxiety, essential tremor, depression, and hysterectomy, presenting with abdominal pain on and off now. This episode lasts few days with small-bowel obstruction and colitis and terminal ileitis, currently on Rocephin and Flagyl. We will check on blood cultures. and we ordered a terminal ileitis workup including comprehensive metabolic panel, , hepatitis profile, RPR, and lymphoma workup. The patient has never had any upper or lower endoscopy in the past, and we will follow with you. Rudy Wilson MD
[2017-11-02] MEDS: metroNIDAZOLE IV 500 mg/100 ml 500 MG/100 ML BAG IVPB SCH ×3 (06:16→21:08)
--- NOTE | 2017-11-02 06:18 | CP.PCM.PN ---
<Opal Moyer - Last Filed: 11/02/17 09:35> Subjective - Date & Time of Evaluation Date of Evaluation: 11/02/17 Time of Evaluation: 06:14 - Subjective Subjective: Gastroenterology Fellow/PGY5 Progress Note Patient denies abdominal pain. Tolerated ice chips and clear liquids. Passing flatus without bowel movement. A 12-point review of systems negative except for as above. Objective - Vital Signs/Intake and Output Vital Signs (last 24 hours): Temp Pulse Resp BP Pulse Ox 98.4 F 92 H 20 149/87 96 11/01/17 16:30 11/01/17 16:30 11/01/17 16:30 11/01/17 16:30 11/01/17 16:30 Intake and Output: 11/01/17 11/02/17 18:59 06:59 Intake Total 0 420 Balance 0 420 - Medications Medications: Current Medications Acetaminophen (Tylenol 325mg Tab) 650 mg PO Q4H PRN PRN Reason: Fever >100.4 F Last Admin: 10/31/17 20:04 Dose: 650 mg Albuterol/Ipratropium (Duoneb 3 Mg/0.5 Mg (3 Ml) Ud) 3 ml IH [id number] [facility] Last Admin: 11/02/17 02:24 Dose: Not Given Alprazolam (Xanax) 1 mg PO QID PRN; Protocol PRN Reason: Anxiety Last Admin: 10/31/17 21:54 Dose: 1 mg Atorvastatin Calcium (Lipitor) 10 mg PO HS [facility] Last Admin: 11/01/17 22:15 Dose: 10 mg Hydrochlorothiazide (Hydrodiuril) 25 mg PO DAILY [facility] Last Admin: 11/01/17 10:50 Dose: Not Given Metronidazole (Flagyl) 500 mg in 100 mls @ 100 mls/hr IVPB Q8 [facility] PRN Reason: Protocol Last Admin: 11/01/17 22:15 Dose: 100 mls/hr Ceftriaxone Sodium (Rocephin 1 Gram Ivpb) 1 gm in 100 mls @ 100 mls/hr IVPB DAILY [facility] PRN Reason: Protocol Last Admin: 11/01/17 10:39 Dose: 100 mls/hr Losartan Potassium (Cozaar) 100 mg PO DAILY [facility] Last Admin: 11/01/17 10:34 Dose: 100 mg Morphine Sulfate (Morphine) 2 mg IM Q4H PRN PRN Reason: Pain, moderate (4-7) Ondansetron HCl (Zofran Inj) 4 mg IVP Q4H PRN PRN Reason: Nausea/Vomiting Pantoprazole Sodium (Protonix Inj) 40 mg IVP DAILY [facility] Last Admin: 11/01/17 10:38 Dose: 40 mg Paroxetine HCl (Paxil) 20 mg PO DAILY [facility] Last Admin: 11/01/17 10:35 Dose: 20 mg Primidone (Mysoline) 50 mg PO HS [facility] Last Admin: 11/01/17 22:15 Dose: 50 mg - Labs Labs: 11/01/17 07:30 11/01/17 07:30 - Constitutional Appears: Non-toxic, No Acute Distress - Head Exam Head Exam: ATRAUMATIC, NORMOCEPHALIC - Eye Exam Eye Exam: EOMI, PERRL Pupil Exam: PERRL. absent: Miosis, Mydriatic - ENT Exam ENT Exam: Mucous Membranes Moist, Normal Oropharynx - Neck Exam Neck Exam: Full ROM, Normal Inspection - Respiratory Exam Respiratory Exam: Clear to Ausculation Bilateral. absent: Rales, Rhonchi, Wheezes - Cardiovascular Exam Cardiovascular Exam: RRR, +S1, +S2. absent: Gallop, Rubs - GI/Abdominal Exam GI & Abdominal Exam: Distended, Soft, Hyperactive Bowel Sounds. absent: Firm, Guarding, Rigid, Tenderness, Organomegaly - Extremities Exam Extremities Exam: Normal Inspection. absent: Pedal Edema - Neurological Exam Neurological Exam: Alert, Awake - Psychiatric Exam Psychiatric exam: Normal Affect, Normal Mood Assessment and Plan - Assessment and Plan (Free Text) Assessment: 77 year old female with history of Hypertension, Hyperlipidemia, Anxiety, constipation, and essential tremor presenting with abdominal pain. Active treatment of small bowel obstruction and terminal ileitis noted on CT A/P PO/IV contrast. No prior EGD or colonoscopy. Plan: >DDx: infectious, inflammatory, ischemic >11/01- abdominal flat plate- mild improvement in distension >repeat abdominal flat plate today >ordered Dulcolax RC BID >ESR 4, pending CRP >stool studies ordered, unable to collect- no BM >on ceftriaxone/flagyl >supportive care: pain control, anti-emetics >tolerating clear liquids, consider full liquids for dinner if xray improved >will follow clinical course <Hellen Hernandezl - Last Filed: 11/02/17 16:39> Objective - Vital Signs/Intake and Output Vital Signs (last 24 hours): Temp Pulse Resp BP Pulse Ox 99.1 F 94 H 18 122/63 97 11/02/17 06:00 11/02/17 06:00 11/02/17 06:00 11/02/17 06:00 11/02/17 06:00 Intake and Output: 11/02/17 11/02/17 06:59 18:59 Intake Total 420 120 Balance 420 120 - Medications Medications: Current Medications Acetaminophen (Tylenol 325mg Tab) 650 mg PO Q4H PRN PRN Reason: Fever >100.4 F Last Admin: 10/31/17 20:04 Dose: 650 mg Albuterol/Ipratropium (Duoneb 3 Mg/0.5 Mg (3 Ml) Ud) 3 ml IH [id number] [facility] Last Admin: 11/02/17 07:47 Dose: Not Given Alprazolam (Xanax) 1 mg PO QID PRN; Protocol PRN Reason: Anxiety Last Admin: 11/02/17 16:05 Dose: 1 mg Atorvastatin Calcium (Lipitor) 10 mg PO HS [facility] Last Admin: 11/01/17 22:15 Dose: 10 mg Hydrochlorothiazide (Hydrodiuril) 25 mg PO DAILY [facility] Last Admin: 11/02/17 09:52 Dose: Not Given Metronidazole (Flagyl) 500 mg in 100 mls @ 100 mls/hr IVPB Q8 [facility] PRN Reason: Protocol Last Admin: 11/02/17 15:27 Dose: 100 mls/hr Ceftriaxone Sodium (Rocephin 1 Gram Ivpb) 1 gm in 100 mls @ 100 mls/hr IVPB DAILY [facility] PRN Reason: Protocol Last Admin: 11/02/17 09:53 Dose: 100 mls/hr Losartan Potassium (Cozaar) 100 mg PO DAILY [facility] Last Admin: 11/02/17 09:52 Dose: 100 mg Morphine Sulfate (Morphine) 2 mg IM Q4H PRN PRN Reason: Pain, moderate (4-7) Ondansetron HCl (Zofran Inj) 4 mg IVP Q4H PRN PRN Reason: Nausea/Vomiting Pantoprazole Sodium (Protonix Inj) 40 mg IVP DAILY [facility] Last Admin: 11/02/17 09:52 Dose: 40 mg Paroxetine HCl (Paxil) 20 mg PO DAILY [facility] Last Admin: 11/02/17 09:52 Dose: 20 mg Primidone (Mysoline) 50 mg PO HS [facility] Last Admin: 11/01/17 22:15 Dose: 50 mg - Labs Labs: 11/01/17 07:30 11/02/17 14:15 Attending/Attestation - Attestation I have personally seen and examined this patient.: Yes I have fully participated in the care of the patient.: Yes I have reviewed all pertinent clinical information, including history, physical exam and plan: Yes Notes (Text): 11/02/17 16:36 77 year old female with h/o HTN, HLD, chronic constiopation admitted with SBO. 1. Small bowel obstruction 2. Terminal ileitis Plan: -infectious vs inflammatory vs ischemia -tolerated clears so far, reviewed x ray today -start full liquids -low ESR suggests that if this is Crohn's disease, then the TI stricture may be fibrotic -her long standing history of constipation/laxative dependence may also be suggestive that this has been present for a long time -will give dulcolax suppositories -ideally would do colonoscopy to establish diagnosis at some point when obstruction resolves -if she has recurrence before this is possible, then she may need surgery
[2017-11-02] MEDS: cefTRIAXone 1 gm 1 GM/100 ML BAG IVPB SCH (09:53)
--- NOTE | 2017-11-02 10:44 | CP.PCM.PN ---
Subjective - Date & Time of Evaluation Date of Evaluation: 11/02/17 Time of Evaluation: 07:50 - Subjective Subjective: Surgery Progress note. Dr. Ortega Pt seen and examined at bedside. No acute events overnight. No F/C. Does report flatus. No BM. No new complaints. Does report improving abdominal pain. Tolerating liquids. Objective - Vital Signs/Intake and Output Vital Signs (last 24 hours): Temp Pulse Resp BP Pulse Ox 98.4 F 92 H 20 149/87 96 11/01/17 16:30 11/01/17 16:30 11/01/17 16:30 11/01/17 16:30 11/01/17 16:30 Intake and Output: 11/02/17 11/02/17 06:59 18:59 Intake Total 420 120 Balance 420 120 - Medications Medications: Current Medications Acetaminophen (Tylenol 325mg Tab) 650 mg PO Q4H PRN PRN Reason: Fever >100.4 F Last Admin: 10/31/17 20:04 Dose: 650 mg Albuterol/Ipratropium (Duoneb 3 Mg/0.5 Mg (3 Ml) Ud) 3 ml IH [id number] [facility] Last Admin: 11/02/17 07:47 Dose: Not Given Alprazolam (Xanax) 1 mg PO QID PRN; Protocol PRN Reason: Anxiety Last Admin: 10/31/17 21:54 Dose: 1 mg Atorvastatin Calcium (Lipitor) 10 mg PO HS [facility] Last Admin: 11/01/17 22:15 Dose: 10 mg Hydrochlorothiazide (Hydrodiuril) 25 mg PO DAILY [facility] Last Admin: 11/02/17 09:52 Dose: Not Given Metronidazole (Flagyl) 500 mg in 100 mls @ 100 mls/hr IVPB Q8 [facility] PRN Reason: Protocol Last Admin: 11/02/17 06:16 Dose: 100 mls/hr Ceftriaxone Sodium (Rocephin 1 Gram Ivpb) 1 gm in 100 mls @ 100 mls/hr IVPB DAILY [facility] PRN Reason: Protocol Last Admin: 11/02/17 09:53 Dose: 100 mls/hr Losartan Potassium (Cozaar) 100 mg PO DAILY [facility] Last Admin: 11/02/17 09:52 Dose: 100 mg Morphine Sulfate (Morphine) 2 mg IM Q4H PRN PRN Reason: Pain, moderate (4-7) Ondansetron HCl (Zofran Inj) 4 mg IVP Q4H PRN PRN Reason: Nausea/Vomiting Pantoprazole Sodium (Protonix Inj) 40 mg IVP DAILY [facility] Last Admin: 11/02/17 09:52 Dose: 40 mg Paroxetine HCl (Paxil) 20 mg PO DAILY [facility] Last Admin: 11/02/17 09:52 Dose: 20 mg Primidone (Mysoline) 50 mg PO HS [facility] Last Admin: 11/01/17 22:15 Dose: 50 mg - Labs Labs: 11/01/17 07:30 11/01/17 07:30 - Constitutional Appears: Non-toxic, No Acute Distress - Head Exam Head Exam: ATRAUMATIC, NORMAL INSPECTION, NORMOCEPHALIC - Eye Exam Eye Exam: EOMI. absent: Scleral icterus - ENT Exam ENT Exam: Mucous Membranes Moist - Respiratory Exam Respiratory Exam: NORMAL BREATHING PATTERN. absent: Accessory Muscle Use, Respiratory Distress - Cardiovascular Exam Cardiovascular Exam: absent: JVD - GI/Abdominal Exam GI & Abdominal Exam: Soft. absent: Distended, Firm, Guarding, Rigid, Tenderness - Extremities Exam Extremities Exam: Normal Inspection. absent: Calf Tenderness - Neurological Exam Neurological Exam: Alert, Awake, Oriented x3 - Psychiatric Exam Psychiatric exam: Normal Affect, Normal Mood - Skin Skin Exam: Dry, Intact, Normal Color, Warm Assessment and Plan - Assessment and Plan (Free Text) Assessment: 77yo F with SBO vs. Colitis Plan: - Diet recs as per GI team - f/u AM labs - f/u repeat Abd flat plate - IVF and Abx - f/u GI recs - serial abd exams - No planned surgical intervention at this time Further recs as per Dr. Jordan Martin PGY1 Surgery pager: [phone]
--- NOTE | 2017-11-02 13:04 | RAD ---
HISTORY: evaluate bowel obstruction COMPARISON: Abdominal flat plate radiograph performed 11/01/17 FINDINGS: BOWEL: No significant interval change appreciated. Persistent small bowel distension. Oral contrast seen throughout the colon. BONES: Scoliosis convex to the right. Osseous demineralization. Degenerative changes. OTHER FINDINGS: None. IMPRESSION: No significant interval change appreciated. Persistent small bowel distension. Oral contrast seen throughout the colon.
[2017-11-02 15:03] LABS: CALCIUM 9.4 mg/dL (8.4-10.5)
--- NOTE | 2017-11-02 23:37 | PN ---
DATE: 11/02/2017 SUBJECTIVE: The patient was seen earlier this morning in room 369, bed 1. She is awake and alert. She states she is doing well. No abdominal pain. She has not had any bowel movements. PHYSICAL EXAMINATION: VITAL SIGNS: On exam; temperature is 98, blood pressure was 160/80, respiratory rate of 18, and heart rate of 92. HEENT: Unremarkable. NECK: Supple. LUNGS: Have decreased breath sounds. HEART: Normal S1 and S2. ABDOMEN: Soft and nontender. LABORATORY DATA: Reveals the patient's white count is 6.2. Chemistries are noted. Urinalysis is noted. Microbiology reveals the blood cultures, no growth and urine cultures, no growth. The patient's abdominal x-ray's from this morning reveals the patient to have no significant change in persistent bowel distention. Dr. Hernandez's note from this morning is reviewed. note from today is also reviewed. ASSESSMENT AND PLAN: This is a 77-year-old female with history of long history of laxative use for constipation, history of Parkinson's, hypertension, essential tremor, anxiety, depression, who has had intermittent abdominal pain now for sometime on and off, this episode. The patient now is admitted with: 1. Small bowel obstruction with colitis and terminal ileitis, etiology of which should be determined. Workup is pending. Thus far the cultures are negative. Currently on ceftriaxone and Flagyl. C-reactive protein is pending. CMV, PCR, RPR, HIV, TB workup, Whipple's disease workup, prognosis is pending. Stool cultures are also pending. Most likely, we will discontinue the ceftriaxone and Flagyl in the next 24 to 48 hours. The patient will need a colonoscopy once this obstruction has resolved. 2. Rule out Crohn's disease, inflammatory bowel disease. 3. The patient with a long history of laxative use for constipation. Rudy Wilson MD
--- NOTE | 2017-11-03 00:51 | PN ---
DATE: 11/02/2017 SUBJECTIVE: The patient has no complaints of any chest pain. No shortness of breath. No headaches. She states she is tolerating her liquid diet. PHYSICAL EXAMINATION: VITAL SIGNS: Temperature is 98.4, pulse is 90, blood pressure is 167/85, and respirations are 18. GENERAL: The patient is lying in bed, flat, comfortable. HEENT: No oral lesion. Anicteric sclerae. Moist mucosa. NECK: No JVD, adenopathy, or thyromegaly. CARDIOVASCULAR: S1 and S2, regular. No murmurs, rubs, or gallops. LUNGS: Clear to auscultation bilaterally. No wheeze, rales, or rhonchi. ABDOMEN: Bowel sounds are positive, soft, nontender and nondistended. EXTREMITIES: No cyanosis, clubbing or edema. LABORATORY DATA: Labs have been reviewed. Abdominal x-ray shows no significant interval change appreciated, persistent small bowel obstruction. ASSESSMENT: 1. Small bowel obstruction. 2. Dyslipidemia. 3. Hypertension. 4. Anxiety. 5. Essential tremor. PLAN: The patient is currently comfortable. She has blood cultures and urine cultures that have been negative. The patient is on losartan for hypertension. She is on nebulizer treatment. The patient is on Flagyl for possible colitis. She is receiving Lipitor for dyslipidemia. She is on Paxil. She is receiving Protonix daily. She is on Rocephin for antibiotics. She is on liquid diet. I did speak to the patient's son to give him an update on the patient's diagnosis and plan of care. I have reviewed the patient's notes from GI and from Surgery. Rodrigo Raza MD
[2017-11-03] MEDS: Albuterol-Ipratrop 3 mg / 0.5 (3 ml) UD IH SCH ×4 (02:45→20:42)
[2017-11-03] MEDS: metroNIDAZOLE IV 500 mg/100 ml 500 MG/100 ML BAG IVPB SCH ×3 (05:14→21:23)
[2017-11-03 08:05] LABS: HEPATITIS B SURFACE AG NEGATIVE (NEGATIVE)
[2017-11-03 08:11] LABS: HEPATITIS A IGM NEGATIVE (NEGATIVE); HEPATITIS B CORE AB Negative (NEGATIVE)
[2017-11-03 08:23] LABS: HEPATITIS C ANTIBODY Negative (NEGATIVE)
--- NOTE | 2017-11-03 08:29 | CP.PCM.PN ---
<Opal Moyer - Last Filed: 11/03/17 10:31> Subjective - Date & Time of Evaluation Date of Evaluation: 11/03/17 Time of Evaluation: 08:26 - Subjective Subjective: Gastroenterology Fellow/PGY5 Progress Note Patient denies abdominal pain. Tolerated full liquids. Passing flatus with three small specks of stools. A 12-point review of systems negative except for as above. Objective - Vital Signs/Intake and Output Vital Signs (last 24 hours): Temp Pulse Resp BP Pulse Ox 99 F 85 19 156/77 H 97 11/03/17 06:00 11/03/17 06:00 11/03/17 06:00 11/03/17 06:00 11/03/17 06:00 Intake and Output: 11/03/17 11/03/17 06:59 18:59 Intake Total 680 Output Total 0 Balance 680 - Medications Medications: Current Medications Acetaminophen (Tylenol 325mg Tab) 650 mg PO Q4H PRN PRN Reason: Fever >100.4 F Last Admin: 10/31/17 20:04 Dose: 650 mg Albuterol/Ipratropium (Duoneb 3 Mg/0.5 Mg (3 Ml) Ud) 3 ml IH [id number] [facility] Last Admin: 11/03/17 07:46 Dose: Not Given Alprazolam (Xanax) 1 mg PO QID PRN; Protocol PRN Reason: Anxiety Last Admin: 11/03/17 00:08 Dose: 1 mg Atorvastatin Calcium (Lipitor) 10 mg PO HS [facility] Last Admin: 11/02/17 21:14 Dose: 10 mg Hydrochlorothiazide (Hydrodiuril) 25 mg PO DAILY [facility] Last Admin: 11/02/17 09:52 Dose: Not Given Metronidazole (Flagyl) 500 mg in 100 mls @ 100 mls/hr IVPB Q8 [facility] PRN Reason: Protocol Last Admin: 11/03/17 05:14 Dose: 100 mls/hr Ceftriaxone Sodium (Rocephin 1 Gram Ivpb) 1 gm in 100 mls @ 100 mls/hr IVPB DAILY [facility] PRN Reason: Protocol Last Admin: 11/02/17 09:53 Dose: 100 mls/hr Losartan Potassium (Cozaar) 100 mg PO DAILY [facility] Last Admin: 11/02/17 09:52 Dose: 100 mg Morphine Sulfate (Morphine) 2 mg IM Q4H PRN PRN Reason: Pain, moderate (4-7) Ondansetron HCl (Zofran Inj) 4 mg IVP Q4H PRN PRN Reason: Nausea/Vomiting Pantoprazole Sodium (Protonix Inj) 40 mg IVP DAILY [facility] Last Admin: 11/02/17 09:52 Dose: 40 mg Paroxetine HCl (Paxil) 20 mg PO DAILY [facility] Last Admin: 11/02/17 09:52 Dose: 20 mg Primidone (Mysoline) 50 mg PO HS [facility] Last Admin: 11/02/17 21:14 Dose: 50 mg - Labs Labs: 11/01/17 07:30 11/02/17 14:15 - Constitutional Appears: Non-toxic, No Acute Distress - Head Exam Head Exam: ATRAUMATIC, NORMOCEPHALIC - Eye Exam Eye Exam: EOMI, PERRL. absent: Scleral icterus Pupil Exam: PERRL. absent: Miosis, Mydriatic - ENT Exam ENT Exam: Mucous Membranes Moist, Normal Oropharynx - Neck Exam Neck Exam: Full ROM, Normal Inspection - Respiratory Exam Respiratory Exam: Clear to Ausculation Bilateral. absent: Rales, Rhonchi, Wheezes - Cardiovascular Exam Cardiovascular Exam: RRR, +S1, +S2. absent: Gallop, Rubs - GI/Abdominal Exam GI & Abdominal Exam: Distended, Soft, Normal Bowel Sounds. absent: Firm, Guarding, Rigid, Tenderness, Organomegaly, Rebound - Extremities Exam Extremities Exam: Normal Inspection. absent: Pedal Edema - Neurological Exam Neurological Exam: Alert, Awake - Psychiatric Exam Psychiatric exam: Normal Affect, Normal Mood - Skin Skin Exam: Dry, Intact, Normal Color, Warm Assessment and Plan - Assessment and Plan (Free Text) Assessment: 77 year old female with history of Hypertension, Hyperlipidemia, Anxiety, constipation, and essential tremor presenting with abdominal pain. Active treatment of small bowel obstruction and terminal ileitis noted on CT A/P PO/IV contrast. No prior EGD or colonoscopy. Plan: >11/02- abdominal flat plate- unchanged >repeat abdominal flat plate today >ordered Dulcolax PO 5mg and fleet enema x 1 >continue Dulcolax RC BID >ESR 4 >stool studies ordered, unable to collect- no BM >on ceftriaxone/flagyl >supportive care: pain control, anti-emetics >tolerating full liquid diet >will follow clinical course <Hood Fair - Last Filed: 11/03/17 16:34> Objective - Vital Signs/Intake and Output Vital Signs (last 24 hours): Temp Pulse Resp BP Pulse Ox 99 F 81 19 158/91 H 97 11/03/17 08:33 11/03/17 12:21 11/03/17 08:33 11/03/17 12:21 11/03/17 08:33 Intake and Output: 11/03/17 11/03/17 06:59 18:59 Intake Total 680 Output Total 0 Balance 680 - Medications Medications: Current Medications Acetaminophen (Tylenol 325mg Tab) 650 mg PO Q4H PRN PRN Reason: Fever >100.4 F Last Admin: 10/31/17 20:04 Dose: 650 mg Albuterol/Ipratropium (Duoneb 3 Mg/0.5 Mg (3 Ml) Ud) 3 ml IH [id number] [facility] Last Admin: 11/03/17 13:33 Dose: Not Given Alprazolam (Xanax) 1 mg PO QID PRN; Protocol PRN Reason: Anxiety Last Admin: 11/03/17 15:47 Dose: 1 mg Amlodipine Besylate (Norvasc) 5 mg PO DAILY [facility] Last Admin: 11/03/17 12:21 Dose: 5 mg Atorvastatin Calcium (Lipitor) 10 mg PO HS [facility] Last Admin: 11/02/17 21:14 Dose: 10 mg Hydrochlorothiazide (Hydrodiuril) 25 mg PO DAILY [facility] Last Admin: 11/03/17 09:08 Dose: 25 mg Metronidazole (Flagyl) 500 mg in 100 mls @ 100 mls/hr IVPB Q8 [facility] PRN Reason: Protocol Last Admin: 11/03/17 15:32 Dose: 100 mls/hr Ceftriaxone Sodium (Rocephin 1 Gram Ivpb) 1 gm in 100 mls @ 100 mls/hr IVPB DAILY [facility] PRN Reason: Protocol Last Admin: 11/03/17 09:09 Dose: 100 mls/hr Losartan Potassium (Cozaar) 100 mg PO DAILY [facility] Last Admin: 11/03/17 09:09 Dose: 100 mg Morphine Sulfate (Morphine) 2 mg IM Q4H PRN PRN Reason: Pain, moderate (4-7) Ondansetron HCl (Zofran Inj) 4 mg IVP Q4H PRN PRN Reason: Nausea/Vomiting Pantoprazole Sodium (Protonix Ec Tab) 40 mg PO ACB [facility] Paroxetine HCl (Paxil) 20 mg PO DAILY [facility] Last Admin: 11/03/17 09:09 Dose: 20 mg Potassium Chloride (K-Dur 20 Meq Er Tab) 20 meq PO DAILY [facility] Last Admin: 11/03/17 09:23 Dose: 20 meq Primidone (Mysoline) 50 mg PO HS [facility] Last Admin: 11/02/17 21:14 Dose: 50 mg - Labs Labs: 11/01/17 07:30 11/02/17 14:15 Attending/Attestation - Attestation I have personally seen and examined this patient.: Yes I have fully participated in the care of the patient.: Yes I have reviewed all pertinent clinical information, including history, physical exam and plan: Yes Notes (Text): 11/03/17 16:31 I have seen and examined patient with GI fellow. No acute events overnight, she is seen resting in bed comfortably. She denies abdominal pain, nausea, vomiting, fever/chills. She still has not had a bowel movement despite oral and rectal medical therapy. Tolerating PO diet without difficulty. Review of vitals from today shows elevated BP. HTN Hyperlipidemia Anxiety Chronic constipation, terminal ileitis of unclear etiology - Diet as tolerated - Continue with antibiotic therapy - Suggest continued aggressive bowel regimen to prevent constipation along with administration of enema today - Repeat abdominal XR - Patient will require elective outpatient colonoscopy for further evaluation of ileitis following resolution of acute symptoms, will continue to monitor patient clinical course
[2017-11-03] MEDS: cefTRIAXone 1 gm 1 GM/100 ML BAG IVPB SCH (09:09)
--- NOTE | 2017-11-03 09:18 | CP.PCM.PN ---
Subjective - Date & Time of Evaluation Date of Evaluation: 11/03/17 Time of Evaluation: 07:00 - Subjective Subjective: Surgery: Dr. Ortega Pt seen and examined. No acute overnight events. Pt states she feels better and denies any abdominal pain. She's tolerating liquids and denies N/V, F/C. Admits to flatus and small BMs. Objective - Vital Signs/Intake and Output Vital Signs (last 24 hours): Temp Pulse Resp BP Pulse Ox 99 F 85 19 156/77 H 97 11/03/17 08:33 11/03/17 08:33 11/03/17 08:33 11/03/17 08:33 11/03/17 08:33 Intake and Output: 11/03/17 11/03/17 06:59 18:59 Intake Total 680 Output Total 0 Balance 680 - Medications Medications: Current Medications Acetaminophen (Tylenol 325mg Tab) 650 mg PO Q4H PRN PRN Reason: Fever >100.4 F Last Admin: 10/31/17 20:04 Dose: 650 mg Albuterol/Ipratropium (Duoneb 3 Mg/0.5 Mg (3 Ml) Ud) 3 ml IH [id number] [facility] Last Admin: 11/03/17 07:46 Dose: Not Given Alprazolam (Xanax) 1 mg PO QID PRN; Protocol PRN Reason: Anxiety Last Admin: 11/03/17 00:08 Dose: 1 mg Atorvastatin Calcium (Lipitor) 10 mg PO HS [facility] Last Admin: 11/02/17 21:14 Dose: 10 mg Hydrochlorothiazide (Hydrodiuril) 25 mg PO DAILY [facility] Last Admin: 11/02/17 09:52 Dose: Not Given Metronidazole (Flagyl) 500 mg in 100 mls @ 100 mls/hr IVPB Q8 [facility] PRN Reason: Protocol Last Admin: 11/03/17 05:14 Dose: 100 mls/hr Ceftriaxone Sodium (Rocephin 1 Gram Ivpb) 1 gm in 100 mls @ 100 mls/hr IVPB DAILY [facility] PRN Reason: Protocol Last Admin: 11/02/17 09:53 Dose: 100 mls/hr Losartan Potassium (Cozaar) 100 mg PO DAILY [facility] Last Admin: 11/02/17 09:52 Dose: 100 mg Morphine Sulfate (Morphine) 2 mg IM Q4H PRN PRN Reason: Pain, moderate (4-7) Ondansetron HCl (Zofran Inj) 4 mg IVP Q4H PRN PRN Reason: Nausea/Vomiting Pantoprazole Sodium (Protonix Inj) 40 mg IVP DAILY [facility] Last Admin: 11/02/17 09:52 Dose: 40 mg Paroxetine HCl (Paxil) 20 mg PO DAILY [facility] Last Admin: 11/02/17 09:52 Dose: 20 mg Potassium Chloride (K-Dur 20 Meq Er Tab) 20 meq PO DAILY [facility] Primidone (Mysoline) 50 mg PO HS [facility] Last Admin: 11/02/17 21:14 Dose: 50 mg - Labs Labs: 11/01/17 07:30 11/02/17 14:15 - Constitutional Appears: Well, No Acute Distress - Head Exam Head Exam: ATRAUMATIC, NORMOCEPHALIC - Eye Exam Eye Exam: Normal appearance - ENT Exam ENT Exam: Mucous Membranes Moist - Respiratory Exam Respiratory Exam: NORMAL BREATHING PATTERN - Cardiovascular Exam Cardiovascular Exam: RRR - GI/Abdominal Exam GI & Abdominal Exam: Soft. absent: Distended, Guarding, Tenderness - Extremities Exam Extremities Exam: absent: Tenderness - Neurological Exam Neurological Exam: Alert, Awake, Oriented x3 - Skin Skin Exam: Dry, Warm Assessment and Plan - Assessment and Plan (Free Text) Assessment: 77F with enteritis, surg consulted to r/o SBO Plan: - advance diet as tolerated per GI recs - no further surgical intervention at this time - pt clear for DC from surgical standpoint - d/w Dr. Jordan Fierro, PGY-3 Surgery
[2017-11-03] MEDS: Potassium Chloride 20 mEq ER Tab PO SCH (09:23)
[2017-11-03] MEDS ORDERED: Bisacodyl 5mg EC Tab PO ONE (10:32)
--- NOTE | 2017-11-03 14:26 | RAD ---
HISTORY: evaluate small bowel obstruction COMPARISON: 11/02/2017 FINDINGS: BOWEL: There is moderate distention of small bowel. There is persistent contrast in the colon. Findings are unchanged BONES: Normal. OTHER FINDINGS: None. IMPRESSION: There is moderate distention of small bowel. There is persistent contrast in the colon. Findings are unchanged
--- NOTE | 2017-11-03 15:43 | PN ---
DATE: SUBJECTIVE: The patient is a 77-year-old seen and examined, lying in bed, seemed to be comfortable. No nausea or vomiting. Tolerating food. Minimal abdominal pain. PHYSICAL EXAMINATION: VITAL SIGNS: She has temperature 99, pulse 85, respirations 19, and blood pressure 156/77. LUNGS: Bilateral fair airflow. No rhonchi or rales. HEART: S1 and S2, audible. ABDOMEN: Soft and nontender. No rebound. No guarding. NEUROLOGIC: She is awake, alert, oriented, and communicative. EXTREMITIES: Bilateral leg no edema. LABORATORY DATA: Her chemistry; sodium 140, potassium 3.6, chloride 106, CO2 22, BUN 10, creatinine 1.1, and blood sugar 107. CT scan of the abdomen and pelvis done on 10/31/2017 shows small bowel obstruction at the level of terminal ileum, questionable Crohn's disease. ASSESSMENT: 1. Partial small bowel obstruction, etiology still unclear, could be inflammatory bowel disease. The patient never had colonoscopy that need to be arranged after she recovered from current episode. 2. Electrolyte imbalance, improved. 3. Hypertension. 4. Anxiety disorder. 5. Abnormal LFT, seemed to be improving. PLAN: Currently, the patient is on losartan 100 mg daily. She is on nebulizer treatment. She is on metronidazole. Continue on Rocephin. I will start her on small dose of Norvasc and monitor her blood pressure closely. Followup electrolyte in a.m. Amara Guerrero MD
--- NOTE | 2017-11-03 17:22 | CP.PCM.PN ---
Subjective - Date & Time of Evaluation Date of Evaluation: 11/03/17 Time of Evaluation: 11:15 - Subjective Subjective: Comfortable, no fevers, improved pain in the abdomen, still with constipation. Objective - Vital Signs/Intake and Output Vital Signs (last 24 hours): Temp Pulse Resp BP Pulse Ox 99 F 81 19 158/91 H 97 11/03/17 08:33 11/03/17 12:21 11/03/17 08:33 11/03/17 12:21 11/03/17 08:33 Intake and Output: 11/03/17 11/03/17 06:59 18:59 Intake Total 680 Output Total 0 Balance 680 - Medications Medications: Current Medications Acetaminophen (Tylenol 325mg Tab) 650 mg PO Q4H PRN PRN Reason: Fever >100.4 F Last Admin: 10/31/17 20:04 Dose: 650 mg Albuterol/Ipratropium (Duoneb 3 Mg/0.5 Mg (3 Ml) Ud) 3 ml IH [id number] [facility] Last Admin: 11/03/17 13:33 Dose: Not Given Alprazolam (Xanax) 1 mg PO QID PRN; Protocol PRN Reason: Anxiety Last Admin: 11/03/17 15:47 Dose: 1 mg Amlodipine Besylate (Norvasc) 5 mg PO DAILY [facility] Last Admin: 11/03/17 12:21 Dose: 5 mg Atorvastatin Calcium (Lipitor) 10 mg PO HS [facility] Last Admin: 11/02/17 21:14 Dose: 10 mg Hydrochlorothiazide (Hydrodiuril) 25 mg PO DAILY [facility] Last Admin: 11/03/17 09:08 Dose: 25 mg Metronidazole (Flagyl) 500 mg in 100 mls @ 100 mls/hr IVPB Q8 [facility] PRN Reason: Protocol Last Admin: 11/03/17 15:32 Dose: 100 mls/hr Ceftriaxone Sodium (Rocephin 1 Gram Ivpb) 1 gm in 100 mls @ 100 mls/hr IVPB DAILY [facility] PRN Reason: Protocol Last Admin: 11/03/17 09:09 Dose: 100 mls/hr Losartan Potassium (Cozaar) 100 mg PO DAILY [facility] Last Admin: 11/03/17 09:09 Dose: 100 mg Morphine Sulfate (Morphine) 2 mg IM Q4H PRN PRN Reason: Pain, moderate (4-7) Ondansetron HCl (Zofran Inj) 4 mg IVP Q4H PRN PRN Reason: Nausea/Vomiting Pantoprazole Sodium (Protonix Ec Tab) 40 mg PO ACB [facility] Paroxetine HCl (Paxil) 20 mg PO DAILY [facility] Last Admin: 11/03/17 09:09 Dose: 20 mg Potassium Chloride (K-Dur 20 Meq Er Tab) 20 meq PO DAILY [facility] Last Admin: 11/03/17 09:23 Dose: 20 meq Primidone (Mysoline) 50 mg PO HS [facility] Last Admin: 11/02/17 21:14 Dose: 50 mg - Labs Labs: 11/01/17 07:30 11/02/17 14:15 - Constitutional Appears: Non-toxic - Head Exam Head Exam: NORMAL INSPECTION - ENT Exam ENT Exam: Mucous Membranes Moist - Neck Exam Neck Exam: absent: Meningismus - Respiratory Exam Respiratory Exam: Decreased Breath Sounds - Cardiovascular Exam Cardiovascular Exam: +S1, +S2 - GI/Abdominal Exam GI & Abdominal Exam: Soft. absent: Tenderness Assessment and Plan - Assessment and Plan (Free Text) Plan: Assessment small bowel obstruction in the terminal ileum with colitis R/O IBD chronic constipation Parkinson's disease HTN essential tremor anxiety depression Plan REviewed CT A/P continue Rocephin and Flagyl for now follow up further GI recommendations RPR is negative; follow up CMV PCR, HIV test, Quantiferon TB test, Whipple's disease tests
[2017-11-04] MEDS: Albuterol-Ipratrop 3 mg / 0.5 (3 ml) UD IH SCH ×4 (01:45→19:58)
[2017-11-04] MEDS: metroNIDAZOLE IV 500 mg/100 ml 500 MG/100 ML BAG IVPB SCH (05:24)
[2017-11-04 06:33] LABS: BASO # 0.03 K/mm3 (0.0-2.0); BASO % 0.5 % (0.0-3.0); EOS # 0.2 (0.0-0.7); EOS % 3.6 % (1.5-5.0); GRAN # 4.34 (1.4-6.5); GRAN % 74.1 % (50.0-68.0); HEMOGLOBIN 11.7 g/dL (12.0-16.0); LYMPH # 0.7 (1.2-3.4); LYMPH % 11.9 % (22.0-35.0); MEAN CORPUSCULAR HEMOGLOBIN 30.9 pg (25.0-35.0); MEAN CORPUSCULAR HGB CONC 34.3 g/dl (31.0-37.0); MEAN PLATELET VOLUME 10.3 fl (7.0-11.0); MONO # 0.6 (0.1-0.6); MONO % 9.9 % (1.0-6.0); RBC 3.79 10^6/uL (3.5-6.1); RED CELL DISTRIBUTION WIDTH 13.2 % (11.5-14.5); WHITE BLOOD COUNT 5.9 10^3/ul (4.5-11.0)
[2017-11-04 07:35] LABS: ALB/GLOB RATIO 1.3 (1.1-1.8); ALBUMIN 3.3 g/dL (3.0-4.8)
[2017-11-04] MEDS: Pantoprazole 40 mg EC Tab PO SCH (09:00)
[2017-11-04] MEDS ORDERED: Potassium Chloride 20 mEq ER Tab PO ONE (09:16)
[2017-11-04] MEDS: cefTRIAXone 1 gm 1 GM/100 ML BAG IVPB SCH (09:38)
[2017-11-04] MEDS: Potassium Chloride 20 mEq ER Tab PO SCH (10:20)
--- NOTE | 2017-11-04 10:55 | CP.PCM.PN ---
<Opal Moyer - Last Filed: 11/04/17 10:51> Subjective - Date & Time of Evaluation Date of Evaluation: 11/04/17 Time of Evaluation: 10:51 - Subjective Subjective: Gastroenterology Fellow/PGY5 Progress Note Patient denies notes mild abdominal discomfort while having 4-5 watery stools through the night. Tolerated full liquids. A 12-point review of systems negative except for as above. Objective - Vital Signs/Intake and Output Vital Signs (last 24 hours): Temp Pulse Resp BP Pulse Ox 98.5 F 89 18 131/89 95 11/04/17 08:48 11/04/17 09:32 11/04/17 08:48 11/04/17 09:32 11/04/17 08:48 Intake and Output: 11/04/17 11/04/17 06:59 18:59 Intake Total 1600 120 Balance 1600 120 - Medications Medications: Current Medications Acetaminophen (Tylenol 325mg Tab) 650 mg PO Q4H PRN PRN Reason: Fever >100.4 F Last Admin: 10/31/17 20:04 Dose: 650 mg Albuterol/Ipratropium (Duoneb 3 Mg/0.5 Mg (3 Ml) Ud) 3 ml IH [id number] [facility] Last Admin: 11/04/17 08:01 Dose: Not Given Alprazolam (Xanax) 1 mg PO QID PRN; Protocol PRN Reason: Anxiety Last Admin: 11/03/17 23:04 Dose: 1 mg Amlodipine Besylate (Norvasc) 5 mg PO DAILY [facility] Last Admin: 11/04/17 09:32 Dose: 5 mg Atorvastatin Calcium (Lipitor) 10 mg PO HS [facility] Last Admin: 11/03/17 21:23 Dose: 10 mg Hydrochlorothiazide (Hydrodiuril) 25 mg PO DAILY [facility] Last Admin: 11/04/17 09:33 Dose: Not Given Metronidazole (Flagyl) 500 mg in 100 mls @ 100 mls/hr IVPB Q8 [facility] PRN Reason: Protocol Last Admin: 11/04/17 05:24 Dose: 100 mls/hr Ceftriaxone Sodium (Rocephin 1 Gram Ivpb) 1 gm in 100 mls @ 100 mls/hr IVPB DAILY [facility] PRN Reason: Protocol Last Admin: 11/04/17 09:38 Dose: 100 mls/hr Potassium Chloride (Potassium Chloride 10 Meq/100 Ml) 10 meq in 100 mls @ 50 mls/hr IVPB Q2H [facility] Stop: 11/04/17 15:14 Last Admin: 11/04/17 10:20 Dose: 50 mls/hr Losartan Potassium (Cozaar) 100 mg PO DAILY [facility] Last Admin: 11/04/17 09:34 Dose: 100 mg Morphine Sulfate (Morphine) 2 mg IM Q4H PRN PRN Reason: Pain, moderate (4-7) Ondansetron HCl (Zofran Inj) 4 mg IVP Q4H PRN PRN Reason: Nausea/Vomiting Pantoprazole Sodium (Protonix Ec Tab) 40 mg PO ACB [facility] Last Admin: 11/04/17 09:00 Dose: 40 mg Paroxetine HCl (Paxil) 20 mg PO DAILY [facility] Last Admin: 11/04/17 09:34 Dose: 20 mg Potassium Chloride (K-Dur 20 Meq Er Tab) 20 meq PO DAILY [facility] Last Admin: 11/04/17 10:20 Dose: 20 meq Primidone (Mysoline) 150 mg PO HS [facility] Last Admin: 11/03/17 21:23 Dose: 150 mg - Labs Labs: 11/04/17 05:30 11/04/17 05:30 - Constitutional Appears: Non-toxic, No Acute Distress - Head Exam Head Exam: ATRAUMATIC, NORMOCEPHALIC - Eye Exam Eye Exam: EOMI, PERRL. absent: Scleral icterus Pupil Exam: PERRL. absent: Miosis, Mydriatic - ENT Exam ENT Exam: Mucous Membranes Moist, Normal Oropharynx - Neck Exam Neck Exam: Full ROM, Normal Inspection - Respiratory Exam Respiratory Exam: Clear to Ausculation Bilateral. absent: Rales, Rhonchi, Wheezes - Cardiovascular Exam Cardiovascular Exam: RRR, +S1, +S2. absent: Gallop, Rubs - GI/Abdominal Exam GI & Abdominal Exam: Distended, Soft, Normal Bowel Sounds. absent: Firm, Guarding, Rigid, Tenderness, Organomegaly, Rebound - Extremities Exam Extremities Exam: Normal Inspection. absent: Pedal Edema - Neurological Exam Neurological Exam: Alert, Awake - Psychiatric Exam Psychiatric exam: Normal Affect, Normal Mood - Skin Skin Exam: Dry, Intact, Normal Color, Warm Assessment and Plan - Assessment and Plan (Free Text) Assessment: 77 year old female with history of Hypertension, Hyperlipidemia, Anxiety, constipation, and essential tremor presenting with abdominal pain. Active treatment of small bowel obstruction and terminal ileitis noted on CT A/P PO/IV contrast. No prior EGD or colonoscopy. Plan: >elevated CRP >possible underlying IBD >ordered fecal calprotectin >pending infectious stool studies >abdominal flat plate unchanged >complete 14 day antibiotic course >on ceftriaxone/flagyl >tolerating full liquids >continue bowel regimen >recommend continue on full consistency until further evaluation with colonoscopy <Bruno Hernandez - Last Filed: 11/04/17 16:23> Objective - Vital Signs/Intake and Output Vital Signs (last 24 hours): Temp Pulse Resp BP Pulse Ox 98.5 F 89 18 131/89 95 11/04/17 08:48 11/04/17 09:32 11/04/17 08:48 11/04/17 09:32 11/04/17 08:48 Intake and Output: 11/04/17 11/04/17 06:59 18:59 Intake Total 1600 540 Balance 1600 540 - Medications Medications: Current Medications Acetaminophen (Tylenol 325mg Tab) 650 mg PO Q4H PRN PRN Reason: Fever >100.4 F Last Admin: 10/31/17 20:04 Dose: 650 mg Albuterol/Ipratropium (Duoneb 3 Mg/0.5 Mg (3 Ml) Ud) 3 ml IH [id number] [facility] Last Admin: 11/04/17 13:35 Dose: Not Given Alprazolam (Xanax) 1 mg PO QID PRN; Protocol PRN Reason: Anxiety Last Admin: 11/03/17 23:04 Dose: 1 mg Amlodipine Besylate (Norvasc) 5 mg PO DAILY [facility] Last Admin: 11/04/17 09:32 Dose: 5 mg Atorvastatin Calcium (Lipitor) 10 mg PO HS [facility] Last Admin: 11/03/17 21:23 Dose: 10 mg Hydrochlorothiazide (Hydrodiuril) 25 mg PO DAILY [facility] Last Admin: 11/04/17 09:33 Dose: Not Given Sodium Chloride (Sodium Chloride 0.9%) 1,000 mls @ 75 mls/hr IV .[id number] [facility] Losartan Potassium (Cozaar) 100 mg PO DAILY [facility] Last Admin: 11/04/17 09:34 Dose: 100 mg Morphine Sulfate (Morphine) 2 mg IM Q4H PRN PRN Reason: Pain, moderate (4-7) Ondansetron HCl (Zofran Inj) 4 mg IVP Q4H PRN PRN Reason: Nausea/Vomiting Pantoprazole Sodium (Protonix Ec Tab) 40 mg PO ACB [facility] Last Admin: 11/04/17 09:00 Dose: 40 mg Paroxetine HCl (Paxil) 20 mg PO DAILY [facility] Last Admin: 11/04/17 09:34 Dose: 20 mg Potassium Chloride (K-Dur 20 Meq Er Tab) 20 meq PO DAILY [facility] Last Admin: 11/04/17 10:20 Dose: 20 meq Primidone (Mysoline) 150 mg PO HS [facility] Last Admin: 11/03/17 21:23 Dose: 150 mg Vancomycin HCl (Vancocin 25 Mg/Ml (Oral Use)) 250 mg PO QID [facility] PRN Reason: Protocol Stop: 11/18/17 14:01 Last Admin: 11/04/17 15:43 Dose: 250 mg - Labs Labs: 11/04/17 05:30 11/04/17 05:30 Attending/Attestation - Attestation I have personally seen and examined this patient.: Yes I have fully participated in the care of the patient.: Yes I have reviewed all pertinent clinical information, including history, physical exam and plan: Yes Notes (Text): 11/04/17 16:21 77 year old female with h/o HTN, HLD, chronic constipation admitted with SBO. 1. Small bowel obstruction 2. Terminal ileitis Plan: -concern for Crohn's disease -continue full liquids -she is having bm -no abdominal pain/vomiting -surgery cleared for dc -getting electrolyte replacement today -would plan for outpatient colon next friday (no prep, maybe 1-2 enemas morning of) -if she has recurrent bowel obstruction, she will likely need surgery -ok for discharge from gi perspective
[2017-11-04] MEDS: Vancomycin 25 MG/ML PO SCH ×3 (15:43→21:50)
--- NOTE | 2017-11-04 17:52 | PN ---
DATE: 11/04/2017 SUBJECTIVE: The patient is 77-year-old seen and examined, doing well, had enema, has multiple movements, since then she is feeling well, tolerating clear liquids. PHYSICAL EXAMINATION: VITAL SIGNS: She is afebrile, pulse 89, respirations 18, blood pressure 131/89. LUNGS: Bilateral fair airflow. No rhonchi or crackles. HEART: S1 and S2 audible. ABDOMEN: Soft. Nontender. No rebound. No guarding. NEUROLOGIC: She is awake, alert, oriented. Able to communicate. LABORATORY DATA: WBC is 7.9, hemoglobin 11.7, hematocrit 34, platelets are 332. Chemistry: Sodium 139, potassium 2.3, chloride 100, CO2 of 27, BUN , creatinine 1.1, blood sugar of 94. Blood cultures are negative. ASSESSMENT: 1. Status post partial small bowel obstruction, etiology unclear. Need to rule out Crohn's disease. 2. Hypokalemia. 3. Hypomagnesemia. 4. Generalized weakness. 5. Anxiety disorder. PLAN: We will supplement potassium. Continue IV fluid, advance her diet, monitor another 24 hours. She will be discharged tomorrow. Spoke to Dr. Hernandez, who is going to arrange for colonoscopy next week. Amara Guerrero MD
[2017-11-05] MEDS: Albuterol-Ipratrop 3 mg / 0.5 (3 ml) UD IH SCH ×4 (01:16→20:05)
--- NOTE | 2017-11-05 02:43 | PN ---
DATE: 11/04/2017 SUBJECTIVE: The patient is in bed, in no acute distress. Nontoxic. PHYSICAL EXAMINATION VITAL SIGNS: Temperature is 98, blood pressure is 150/80, respiratory rate of 18, heart rate of 113. HEENT: Unremarkable. NECK: Supple. LUNGS: Have decreased breath sounds. HEART: Normal S1 and S2. ABDOMEN: Soft and nontender. LABORATORY DATA: Reveals the patient's white count of 5.9, hemoglobin of 11, and platelets of 332. Chemistries revealed BUN of 5, creatinine of 1.1 and C reactive protein is 20. Urinalysis was noted. Serology is noted. Microbiology reveals the C. diff now today is positive. She did have one loose bowel and blood cultures are negative. Urine culture are negative. ASSESSMENT AND PLAN: This is a 77-year-old female, who is admitted with small bowel obstruction, terminal ileitis, colitis, was ruled out inflammatory bowel disease, and the patient would have chronic constipation and laxative use, Parkinson's disease, hypertension, essential tremor, anxiety. At this time, we will discontinue the Rocephin and Flagyl and use p.o. vancomycin. Dr. Guerrero's note is reviewed and Dr. Hernandez's note is reviewed. Rudy Wilson MD
--- NOTE | 2017-11-05 05:36 | CP.PCM.PN ---
<Opal Moyer - Last Filed: 11/05/17 10:34> Subjective - Date & Time of Evaluation Date of Evaluation: 11/05/17 Time of Evaluation: 05:33 - Subjective Subjective: Gastroenterology Fellow/PGY5 Progress Note Patient notes mild abdominal discomfort. Three watery stools yesterday. Tolerated full liquids. Advance to soft low fiber diet by primary team. A 12- point review of systems negative except for as above. Objective - Vital Signs/Intake and Output Vital Signs (last 24 hours): Temp Pulse Resp BP Pulse Ox 99.2 F 91 H 18 130/76 99 11/04/17 16:00 11/04/17 16:00 11/04/17 16:00 11/04/17 16:00 11/04/17 16:00 Intake and Output: 11/04/17 11/05/17 18:59 06:59 Intake Total 540 1485 Balance 540 1485 - Medications Medications: Current Medications Acetaminophen (Tylenol 325mg Tab) 650 mg PO Q4H PRN PRN Reason: Fever >100.4 F Last Admin: 10/31/17 20:04 Dose: 650 mg Albuterol/Ipratropium (Duoneb 3 Mg/0.5 Mg (3 Ml) Ud) 3 ml IH [id number] [facility] Last Admin: 11/05/17 01:16 Dose: Not Given Alprazolam (Xanax) 1 mg PO QID PRN; Protocol PRN Reason: Anxiety Last Admin: 11/04/17 23:22 Dose: 1 mg Amlodipine Besylate (Norvasc) 5 mg PO DAILY [facility] Last Admin: 11/04/17 09:32 Dose: 5 mg Atorvastatin Calcium (Lipitor) 10 mg PO HS [facility] Last Admin: 11/04/17 21:50 Dose: 10 mg Hydrochlorothiazide (Hydrodiuril) 25 mg PO DAILY [facility] Last Admin: 11/04/17 09:33 Dose: Not Given Sodium Chloride (Sodium Chloride 0.9%) 1,000 mls @ 75 mls/hr IV .[id number] [facility] Losartan Potassium (Cozaar) 100 mg PO DAILY [facility] Last Admin: 11/04/17 09:34 Dose: 100 mg Ondansetron HCl (Zofran Inj) 4 mg IVP Q4H PRN PRN Reason: Nausea/Vomiting Pantoprazole Sodium (Protonix Ec Tab) 40 mg PO ACB [facility] Last Admin: 11/04/17 09:00 Dose: 40 mg Paroxetine HCl (Paxil) 20 mg PO DAILY [facility] Last Admin: 11/04/17 09:34 Dose: 20 mg Potassium Chloride (K-Dur 20 Meq Er Tab) 20 meq PO DAILY [facility] Last Admin: 11/04/17 10:20 Dose: 20 meq Primidone (Mysoline) 150 mg PO HS [facility] Last Admin: 11/04/17 21:50 Dose: 150 mg Vancomycin HCl (Vancocin 25 Mg/Ml (Oral Use)) 250 mg PO QID [facility] PRN Reason: Protocol Stop: 11/18/17 14:01 Last Admin: 11/04/17 21:50 Dose: 250 mg - Labs Labs: 11/04/17 05:30 11/04/17 05:30 - Constitutional Appears: Non-toxic, No Acute Distress - Head Exam Head Exam: ATRAUMATIC, NORMOCEPHALIC - Eye Exam Eye Exam: EOMI Pupil Exam: PERRL. absent: Miosis, Mydriatic - ENT Exam ENT Exam: Mucous Membranes Moist, Normal Oropharynx - Neck Exam Neck Exam: Full ROM, Normal Inspection - Respiratory Exam Respiratory Exam: Clear to Ausculation Bilateral. absent: Rales, Rhonchi, Wheezes - Cardiovascular Exam Cardiovascular Exam: RRR, +S1, +S2. absent: Gallop, Rubs - GI/Abdominal Exam GI & Abdominal Exam: Soft, Normal Bowel Sounds. absent: Distended, Firm, Guarding, Rigid, Tenderness, Organomegaly, Rebound - Extremities Exam Extremities Exam: Normal Inspection. absent: Pedal Edema - Neurological Exam Neurological Exam: Alert, Awake - Psychiatric Exam Psychiatric exam: Normal Affect, Normal Mood - Skin Skin Exam: Dry, Intact, Normal Color, Warm Assessment and Plan - Assessment and Plan (Free Text) Assessment: 77 year old female with history of Hypertension, Hyperlipidemia, Anxiety, constipation, and essential tremor presenting with abdominal pain. Active treatment of small bowel obstruction and terminal ileitis noted on CT A/P PO/IV contrast. No prior EGD or colonoscopy. Plan: >Cdiff antigen positive >ID managing- 11/04 on vancomycin 250mg QID >pending fecal calprotectin >abdominal flat plate unchanged >worsened abdominal pain with soft diet >recommend altered GI diet of full liquids until further evaluation by colonoscopy >okay to continue PO vancomycin from GI standpoint at home if able to tolerate diet, no leukocytosis, and afebrile >scheduled for elective outpatient colonoscopy Friday11/11/17 at 1130AM >will require surgery if signs of clinical decompensation or recurrent SBO <Glenn Womack MD - Last Filed: 11/05/17 12:51> Objective - Vital Signs/Intake and Output Vital Signs (last 24 hours): Temp Pulse Resp BP Pulse Ox 100.2 F H 84 18 142/78 99 11/05/17 05:43 11/05/17 10:30 11/04/17 16:00 11/05/17 10:30 11/04/17 16:00 Intake and Output: 11/05/17 11/05/17 06:59 18:59 Intake Total 1485 120 Balance 1485 120 - Medications Medications: Current Medications Acetaminophen (Tylenol 325mg Tab) 650 mg PO Q4H PRN PRN Reason: Fever >100.4 F Last Admin: 11/05/17 05:43 Dose: 650 mg Albuterol/Ipratropium (Duoneb 3 Mg/0.5 Mg (3 Ml) Ud) 3 ml IH [id number] [facility] Last Admin: 11/05/17 07:46 Dose: Not Given Alprazolam (Xanax) 1 mg PO QID PRN; Protocol PRN Reason: Anxiety Last Admin: 11/04/17 23:22 Dose: 1 mg Amlodipine Besylate (Norvasc) 5 mg PO DAILY [facility] Last Admin: 11/05/17 10:30 Dose: 5 mg Atorvastatin Calcium (Lipitor) 10 mg PO HS [facility] Last Admin: 11/04/17 21:50 Dose: 10 mg Hydrochlorothiazide (Hydrodiuril) 25 mg PO DAILY [facility] Last Admin: 11/05/17 10:39 Dose: Not Given Sodium Chloride (Sodium Chloride 0.9%) 1,000 mls @ 75 mls/hr IV .[id number] [facility] Losartan Potassium (Cozaar) 100 mg PO DAILY [facility] Last Admin: 11/05/17 10:30 Dose: 100 mg Ondansetron HCl (Zofran Inj) 4 mg IVP Q4H PRN PRN Reason: Nausea/Vomiting Pantoprazole Sodium (Protonix Ec Tab) 40 mg PO ACB [facility] Last Admin: 11/05/17 10:29 Dose: 40 mg Paroxetine HCl (Paxil) 20 mg PO DAILY [facility] Last Admin: 11/05/17 10:30 Dose: 20 mg Potassium Chloride (K-Dur 20 Meq Er Tab) 20 meq PO DAILY [facility] Last Admin: 11/05/17 10:30 Dose: 20 meq Primidone (Mysoline) 150 mg PO HS [facility] Last Admin: 11/04/17 21:50 Dose: 150 mg Vancomycin HCl (Vancocin 25 Mg/Ml (Oral Use)) 250 mg PO QID [facility] PRN Reason: Protocol Stop: 11/18/17 14:01 Last Admin: 11/05/17 10:29 Dose: 250 mg - Labs Labs: 11/05/17 06:15 11/05/17 10:00 Attending/Attestation - Attestation I have personally seen and examined this patient.: Yes I have fully participated in the care of the patient.: Yes I have reviewed all pertinent clinical information, including history, physical exam and plan: Yes Notes (Text): 11/05/17 12:40 This is a 77 year old female with history of Hypertension, Hyperlipidemia, Anxiety, constipation, and essential tremor presenting with abdominal pain in setting of small bowel obstruction and terminal ileitis noted on CT A/P PO/IV contrast. No prior EGD or colonoscopy. She had loose BM with C diff antigen positive. Today pain better and tolerating regular diet. On vancomycin for C diff. Continue electrolyte supplement. Abdominal physical exam is unremarkable. Recommend colonoscopy once acute issues have resolved.
[2017-11-05 06:35] LABS: BASO # 0.02 K/mm3 (0.0-2.0); BASO % 0.4 % (0.0-3.0); EOS # 0.3 (0.0-0.7); EOS % 6.1 % (1.5-5.0); GRAN # 3.37 (1.4-6.5); GRAN % 60.5 % (50.0-68.0); HEMOGLOBIN 11.3 g/dL (12.0-16.0); LYMPH # 1.1 (1.2-3.4); LYMPH % 20.3 % (22.0-35.0); MEAN CELL VOLUME 88.4 fl (80.0-105.0); MEAN CORPUSCULAR HEMOGLOBIN 31.3 pg (25.0-35.0); MEAN CORPUSCULAR HGB CONC 35.4 g/dl (31.0-37.0); MEAN PLATELET VOLUME 9.9 fl (7.0-11.0); MONO # 0.7 (0.1-0.6); MONO % 12.7 % (1.0-6.0); RBC 3.61 10^6/uL (3.5-6.1); RED CELL DISTRIBUTION WIDTH 13.3 % (11.5-14.5); WHITE BLOOD COUNT 5.6 10^3/ul (4.5-11.0)
[2017-11-05 07:06] LABS: ALB/GLOB RATIO 1.3 (1.1-1.8); ALBUMIN 2.9 g/dL (3.0-4.8); ALT/SGPT 69 U/L (7-56); AST/SGOT 62 U/L (14-36); BLOOD UREA NITROGEN 3 mg/dL (7-21); CALCIUM 8.5 mg/dL (8.4-10.5); GFR AFRICAN-AMERICAN > 60; GFR NON-AFRICAN AMERICAN > 60; MAGNESIUM 1.6 mg/dL (1.7-2.2)
[2017-11-05] MEDS ORDERED: Magnesium Sulfate 1 gm in D5W 1 GM/100 ML BAG IVPB ONE (09:33)
[2017-11-05] MEDS ORDERED: Potassium Chloride 20 mEq ER Tab PO STA (09:35)
[2017-11-05] MEDS: Pantoprazole 40 mg EC Tab PO SCH (10:29)
[2017-11-05] MEDS: Vancomycin 25 MG/ML PO SCH ×4 (10:29→21:52)
[2017-11-05] MEDS: Potassium Chloride 20 mEq ER Tab PO SCH (10:30)
[2017-11-05 10:37] LABS: ALB/GLOB RATIO 1.3 (1.1-1.8); ALBUMIN 3.3 g/dL (3.0-4.8); ALT/SGPT 73 U/L (7-56); AST/SGOT 75 U/L (14-36); BLOOD UREA NITROGEN 3 mg/dL (7-21); CALCIUM 8.8 mg/dL (8.4-10.5); GFR AFRICAN-AMERICAN > 60; GFR NON-AFRICAN AMERICAN > 60
[2017-11-05 12:40] LABS: SOURCE: PLASMA
--- NOTE | 2017-11-05 14:00 | PN ---
DATE: 11/05/2017 SUBJECTIVE: The patient is in bed, in no acute distress. When seen earlier this morning, has low-grade fever, no diarrhea last night. PHYSICAL EXAMINATION: VITAL SIGNS: Temperature 100.2, blood pressure is 140/70, respiratory rate of 18, and heart rate of 91. HEENT: Unremarkable. NECK: Supple. LUNGS: Decreased breath sounds. HEART: Normal S1 and S2. ABDOMEN: Soft. LABORATORY DATA: Reveals the patient's white count is noted. Chemistries are reviewed. Stool culture has no growth. Stool for C. diff antigen is positive, but the toxin is negative. The blood cultures are negative. ASSESSMENT AND PLAN: A 77-year-old female with minimally small bowel obstruction, terminal ileitis, and colitis, also an inflammatory bowel disease and the patient with chronic constipation and laxative use and with Parkinson, essential tremors, hypertension, anxiety, currently on p.o. vancomycin for pseudomembranous colitis. I would recommend p.o. vancomycin for 14 days. GI followup as per GI recommendation. Rudy Wilson MD
[2017-11-05] MEDS: Sodium Chloride 0.9% 1,000 ML IV SCH (19:44)
[2017-11-05 19:50] VITALS: RESP 20
--- NOTE | 2017-11-05 22:00 | PN ---
DATE: SUBJECTIVE: The patient is a 77-year-old, seen and examined, lying in bed, seems to be comfortable, tolerating food. No nausea or vomiting. Still has some diarrhea. PHYSICAL EXAMINATION: VITAL SIGNS: She has temperature of 100.2, pulse 84, respirations 18, and blood pressure 142/78. LUNGS: Bilateral good airflow. No rhonchi or crackles. HEART: S1 and S2, audible. No murmur. ABDOMEN: Soft, nontender. No rebound. No guarding. NEUROLOGIC: The patient is awake, alert, oriented, communicative. EXTREMITIES: Moves all extremities. LABORATORY DATA: WBC 5.6, hemoglobin 11.3, hematocrit 31.9, platelets are 279. Chemistry: Sodium 140, potassium 2.7, chloride 102, CO2 of 28, BUN , creatinine 0.9, blood sugar of 120. LFTs, AST 75, ALT 73. Stool positive for C. diff. ASSESSMENT: 1. Clostridium difficile colitis. 2. Partial small bowel obstruction that has resolved. 3. Hypokalemia. 4. Hypomagnesemia. 5. History of hypertension. 9. History of depression. PLAN: We will continue the patient on IV fluids. Potassium has been supplemented. Discussed with the patient's son who is at the bedside. He is interested for TCU and rehab since she has been n.p.o. and has not been eating, she has generalized weakness and hypotension, fall at home, so she would benefit from TCU. Amara Guerrero MD
[2017-11-06] MEDS: Albuterol-Ipratrop 3 mg / 0.5 (3 ml) UD IH SCH ×4 (01:16→20:01)
[2017-11-06 07:07] LABS: HEMOGLOBIN 11.4 g/dL (12.0-16.0); MEAN CELL VOLUME 91.9 fl (80.0-105.0); MEAN CORPUSCULAR HEMOGLOBIN 30.8 pg (25.0-35.0); MEAN CORPUSCULAR HGB CONC 33.5 g/dl (31.0-37.0); MEAN PLATELET VOLUME 10.5 fl (7.0-11.0); RBC 3.7 10^6/uL (3.5-6.1); RED CELL DISTRIBUTION WIDTH 13.5 % (11.5-14.5); WHITE BLOOD COUNT 4.4 10^3/ul (4.5-11.0)
--- NOTE | 2017-11-06 07:15 | CP.PCM.PN ---
<Opal Moyer - Last Filed: 11/06/17 08:58> Subjective - Date & Time of Evaluation Date of Evaluation: 11/06/17 Time of Evaluation: 07:11 - Subjective Subjective: Gastroenterology Fellow/PGY5 Progress Note Patient notes resolved abdominal pain. No bowel movements in two days. Tolerating full liquids. A 12-point review of systems negative except for as above. Objective - Vital Signs/Intake and Output Vital Signs (last 24 hours): Temp Pulse Resp BP Pulse Ox 100.9 F H 109 H 20 152/87 H 93 L 11/05/17 21:51 11/05/17 16:00 11/05/17 16:00 11/05/17 16:00 11/05/17 16:00 Intake and Output: 11/06/17 11/06/17 06:59 18:59 Intake Total 420 Balance 420 - Medications Medications: Current Medications Acetaminophen (Tylenol 325mg Tab) 650 mg PO Q4H PRN PRN Reason: Fever >100.4 F Last Admin: 11/05/17 21:51 Dose: 650 mg Albuterol/Ipratropium (Duoneb 3 Mg/0.5 Mg (3 Ml) Ud) 3 ml IH [id number] [facility] Last Admin: 11/06/17 01:16 Dose: Not Given Alprazolam (Xanax) 1 mg PO QID PRN; Protocol PRN Reason: Anxiety Last Admin: 11/05/17 22:01 Dose: 1 mg Amlodipine Besylate (Norvasc) 5 mg PO DAILY [facility] Last Admin: 11/05/17 10:30 Dose: 5 mg Atorvastatin Calcium (Lipitor) 10 mg PO HS [facility] Last Admin: 11/05/17 21:52 Dose: 10 mg Hydrochlorothiazide (Hydrodiuril) 25 mg PO DAILY [facility] Last Admin: 11/05/17 10:39 Dose: Not Given Sodium Chloride (Sodium Chloride 0.9%) 1,000 mls @ 75 mls/hr IV .[id number] [facility] Last Admin: 11/05/17 19:44 Dose: 75 mls/hr Losartan Potassium (Cozaar) 100 mg PO DAILY [facility] Last Admin: 11/05/17 10:30 Dose: 100 mg Ondansetron HCl (Zofran Inj) 4 mg IVP Q4H PRN PRN Reason: Nausea/Vomiting Pantoprazole Sodium (Protonix Ec Tab) 40 mg PO ACB [facility] Last Admin: 11/05/17 10:29 Dose: 40 mg Paroxetine HCl (Paxil) 20 mg PO DAILY [facility] Last Admin: 11/05/17 10:30 Dose: 20 mg Potassium Chloride (K-Dur 20 Meq Er Tab) 20 meq PO DAILY [facility] Last Admin: 11/05/17 10:30 Dose: 20 meq Primidone (Mysoline) 150 mg PO HS [facility] Last Admin: 11/05/17 21:51 Dose: 150 mg Vancomycin HCl (Vancocin 25 Mg/Ml (Oral Use)) 250 mg PO QID [facility] PRN Reason: Protocol Stop: 11/18/17 14:01 Last Admin: 11/05/17 21:52 Dose: 250 mg - Labs Labs: 11/05/17 06:15 11/05/17 10:00 - Constitutional Appears: Non-toxic, No Acute Distress - Head Exam Head Exam: ATRAUMATIC, NORMOCEPHALIC - Eye Exam Eye Exam: EOMI, PERRL. absent: Scleral icterus Pupil Exam: PERRL. absent: Miosis, Mydriatic - ENT Exam ENT Exam: Mucous Membranes Moist, Normal Oropharynx - Neck Exam Neck Exam: Full ROM, Normal Inspection - Respiratory Exam Respiratory Exam: Clear to Ausculation Bilateral. absent: Rales, Rhonchi, Wheezes - Cardiovascular Exam Cardiovascular Exam: RRR, +S1, +S2. absent: Gallop, Rubs - GI/Abdominal Exam GI & Abdominal Exam: Soft, Normal Bowel Sounds. absent: Distended, Firm, Guarding, Rigid, Tenderness, Organomegaly, Rebound - Extremities Exam Extremities Exam: Normal Inspection. absent: Pedal Edema - Neurological Exam Neurological Exam: Alert, Awake - Psychiatric Exam Psychiatric exam: Normal Affect, Normal Mood - Skin Skin Exam: Dry, Intact, Normal Color, Warm Assessment and Plan - Assessment and Plan (Free Text) Assessment: 77 year old female with history of Hypertension, Hyperlipidemia, Anxiety, constipation, and essential tremor presenting with abdominal pain. Active treatment of small bowel obstruction and terminal ileitis with C diff antigen positive. No prior EGD or colonoscopy. Plan: >ID managing-on vancomycin 250mg PO QID >pending fecal calprotectin and repeat Cdiff >start scheduled Miralax BID >to remain on full liquid diet through Friday >switch to clear liquid diet for Friday and Friday >plan for fleet enema Friday afternoon and Dulcolax PO >plan for NPO after midnight Friday for colonoscopy Friday >plan for abdominal flat plate Friday >will follow clinical course <WallaceBruno - Last Filed: 11/06/17 09:17> Objective - Vital Signs/Intake and Output Vital Signs (last 24 hours): Temp Pulse Resp BP Pulse Ox 98.7 F 90 20 148/81 97 11/06/17 08:36 11/06/17 08:36 11/06/17 08:36 11/06/17 08:36 11/06/17 08:36 Intake and Output: 11/06/17 11/06/17 06:59 18:59 Intake Total 420 Balance 420 - Medications Medications: Current Medications Acetaminophen (Tylenol 325mg Tab) 650 mg PO Q4H PRN PRN Reason: Fever >100.4 F Last Admin: 11/05/17 21:51 Dose: 650 mg Albuterol/Ipratropium (Duoneb 3 Mg/0.5 Mg (3 Ml) Ud) 3 ml IH [id number] [facility] Last Admin: 11/06/17 07:44 Dose: Not Given Alprazolam (Xanax) 1 mg PO QID PRN; Protocol PRN Reason: Anxiety Last Admin: 11/05/17 22:01 Dose: 1 mg Amlodipine Besylate (Norvasc) 5 mg PO DAILY [facility] Last Admin: 11/05/17 10:30 Dose: 5 mg Atorvastatin Calcium (Lipitor) 10 mg PO HS [facility] Last Admin: 11/05/17 21:52 Dose: 10 mg Hydrochlorothiazide (Hydrodiuril) 25 mg PO DAILY [facility] Last Admin: 11/05/17 10:39 Dose: Not Given Sodium Chloride (Sodium Chloride 0.9%) 1,000 mls @ 75 mls/hr IV .[id number] [facility] Last Admin: 11/05/17 19:44 Dose: 75 mls/hr Losartan Potassium (Cozaar) 100 mg PO DAILY [facility] Last Admin: 11/05/17 10:30 Dose: 100 mg Ondansetron HCl (Zofran Inj) 4 mg IVP Q4H PRN PRN Reason: Nausea/Vomiting Pantoprazole Sodium (Protonix Ec Tab) 40 mg PO ACB [facility] Last Admin: 11/05/17 10:29 Dose: 40 mg Paroxetine HCl (Paxil) 20 mg PO DAILY [facility] Last Admin: 11/05/17 10:30 Dose: 20 mg Polyethylene Glycol (Miralax) 17 gm PO BID [facility] Potassium Chloride (K-Dur 20 Meq Er Tab) 20 meq PO DAILY [facility] Last Admin: 11/05/17 10:30 Dose: 20 meq Primidone (Mysoline) 150 mg PO HS [facility] Last Admin: 11/05/17 21:51 Dose: 150 mg Vancomycin HCl (Vancocin 25 Mg/Ml (Oral Use)) 250 mg PO QID [facility] PRN Reason: Protocol Stop: 11/18/17 14:01 Last Admin: 11/05/17 21:52 Dose: 250 mg - Labs Labs: 11/06/17 06:00 11/06/17 06:00 Attending/Attestation - Attestation I have personally seen and examined this patient.: Yes I have fully participated in the care of the patient.: Yes I have reviewed all pertinent clinical information, including history, physical exam and plan: Yes Notes (Text): 11/06/17 09:14 77 year old female with h/o HTN, HLD, chronic constipation admitted with SBO. 1. Partial Small bowel obstruction 2. Terminal ileitis 3. Clostridium difficile Plan: -discussed plan at length with patient and family -plan will be for Colonoscopy next friday -will continue full liquids for now -switch back to clear liquids friday and friday -start miralax BID today -give fleet enema Friday -NPO after MN friday night -obtain abdominal x ray friday morning -obtain repeat stool for cdiff -continue antibiotics -await stool calprotectin -electrolyte replacement per primary with mag/k
[2017-11-06 07:35] LABS: ALB/GLOB RATIO 1.4 (1.1-1.8); ALBUMIN 3.3 g/dL (3.0-4.8); ALT/SGPT 86 U/L (7-56); AST/SGOT 95 U/L (14-36); BLOOD UREA NITROGEN 5 mg/dL (7-21); CALCIUM 9.1 mg/dL (8.4-10.5); GFR AFRICAN-AMERICAN > 60; GFR NON-AFRICAN AMERICAN > 60
[2017-11-06] MEDS ORDERED: Potassium Chloride 20 mEq ER Tab PO SCH (08:00)
[2017-11-06 08:36] VITALS: O2SAT 97
[2017-11-06] MEDS: Pantoprazole 40 mg EC Tab PO SCH (09:12)
[2017-11-06] MEDS: POLYETHYLENE GLYCOL 3350 17 GM/Dose PACKET PO SCH ×2 (09:12→17:13)
[2017-11-06] MEDS: Potassium Chloride 20 mEq ER Tab PO SCH (09:12)
[2017-11-06] MEDS: Vancomycin 25 MG/ML PO SCH ×4 (09:14→21:37)
[2017-11-06] MEDS ORDERED: Potassium Chloride 20 mEq/15 ml LIQ UD PO STA (10:55)
[2017-11-06] MEDS: Sodium Chloride 0.9% 1,000 ML IV SCH (11:09)
[2017-11-06 22:26] VITALS: BP 140/88; PULSE 96; TEMP 100.5
--- NOTE | 2017-11-06 22:53 | PN ---
DATE: 11/06/2017 SUBJECTIVE: The patient is in bed, in no acute distress, and was seen early this morning. PHYSICAL EXAMINATION: VITAL SIGNS: Temperature is 100.9 yesterday, 100.1 today, blood pressure is 140/80, respiratory rate of 20, and heart rate of 109. HEENT: Unremarkable. NECK: Supple. LUNGS: Has decreased breath sounds. HEART: Normal S1 and S2. ABDOMEN: Soft and nontender. LABORATORY DATA: Reveals a white count of 4.4, hemoglobin of 11, and platelets of 330. BUN of 5 and creatinine of 0.8. Microbiology is noted. ASSESSMENT AND PLAN: This is a 77-year-old female with minimally small-bowel obstruction, terminal ileitis, colitis, inflammatory bowel disease, chronic constipation, chronic laxative use, Parkinson's, essential tremors, hypertension, anxiety, on p.o. vancomycin, pseudomembranous colitis, and complete p.o. vancomycin for [address] Hernandez's note is reviewed from today. The patient with small-bowel obstruction and terminal ileitis. The patient fever yesterday and low-grade fever today. We will repeat pancultures. We will follow closely with you. Rudy Wilson MD
--- NOTE | 2017-11-07 03:23 | DS ---
HISTORY OF PRESENT ILLNESS: The patient is a 77-year-old, seen and examined, lying in bed, seems to be comfortable. No nausea or vomiting. No diarrhea. No abdominal pain. Tolerating liquid diet. PHYSICAL EXAMINATION: VITAL SIGNS: She had temperature of 100.9 yesterday, today temperature is 98.7, pulse 90, respirations 20 and blood pressure 148/81. LUNGS: Bilateral fair airflow. No rhonchi or crackle. HEART: S1 and S2 audible. ABDOMEN: Soft and nontender. No rebound. No guarding. NEUROLOGIC: The patient is awake, alert and able to communicate. LABORATORY DATA: WBC is 4.4, hemoglobin 11.4, hematocrit 34 and platelets 330. Chemistry; sodium 141, potassium 3.0, chloride 101, CO2 of 30, BUN 5, creatinine 0.8 and blood sugar of 87. AST 95 and ALT 56. Stool for C. diff on 11/04/2017 is negative. ASSESSMENT: 1. Clostridium difficile colitis. 2. Status post partial small-bowel obstruction, etiology still unclear. 3. Electrolyte imbalance. 4. History of hypertension. PLAN: The patient is currently on full liquid. Discussed with GI. Plan is to have colonoscopy done on Friday. She will be discharged today to TCU where she will prepped over the weekend for coloscopy on Friday. Amara Guerrero MD
== END 2017-11-06 23:11 | DRG 389 ==
LOC: ED 12:06 → ERH 15:38 → 3RNO 18:54
PROVIDERS: ADMIT Internal Medicine Medical Oncology; ATTEND Internal Medicine
DX: K56.600 Partial intestinal obstruction, unspecified as to cause (principal); A04.72 Enterocolitis due to Clostridium difficile, not specified as recurrent; G20 Parkinson's disease; E83.42 Hypomagnesemia; K50.012 Crohn's disease of small intestine with intestinal obstruction; W19.XXXA Unspecified fall, initial encounter; E86.0 Dehydration; I10 Essential (primary) hypertension; D72.820 Lymphocytosis (symptomatic); D72.821 Monocytosis (symptomatic); E78.00 Pure hypercholesterolemia, unspecified; E78.5 Hyperlipidemia, unspecified; E87.6 Hypokalemia; F40.00 Agoraphobia, unspecified; G25.0 Essential tremor; Y92.009 Unspecified place in unspecified non-institutional (private) residence as the place of occurrence of the external cause; Z87.891 Personal history of nicotine dependence; Z90.710 Acquired absence of both cervix and uterus; Z88.1 Allergy status to other antibiotic agents; Z88.8 Allergy status to other drugs, medicaments and biological substances; Z87.892 Personal history of anaphylaxis; Z53.09 Procedure and treatment not carried out because of other contraindication

== ENCOUNTER 2017-11-11 10:03 | Day surgery (SDC) | payer MEDICARE ==
[2017-11-07] VITALS: BMI 20.2
[2017-11-11] MEDS ORDERED: Propofol 10 mg/ml Inj (20 ML) ONE (10:47)
[2017-11-11] MEDS ORDERED: Sodium Chloride 0.9% 1,000 ML IV SCH (12:00)
[2017-11-11 12:27] VITALS: BP 169/87; PULSE 79; RESP 18; TEMP 98; O2SAT 98
== END 2017-11-11 12:45 ==
LOC: ENDO 10:03
PROVIDERS: ATTEND Internal Medicine
DX: K50.00 Crohn's disease of small intestine without complications (principal); K63.89 Other specified diseases of intestine; K64.8 Other hemorrhoids; I10 Essential (primary) hypertension; F32.89 Other specified depressive episodes; G20 Parkinson's disease; F41.9 Anxiety disorder, unspecified; Z90.710 Acquired absence of both cervix and uterus; G25.0 Essential tremor
CPT/HCPCS: 45380; 88305; J2001; J2704; J7040